=== PATIENT | female | born 1975 | race Caucasian/White ===

== ENCOUNTER → 2019-12-13 08:48 | Outpatient (CLI) | payer OTHER, SELFPAY ==
--- NOTE | ~2019-12-13 | US_ITS ---
EXAMINATION: US breast LT complete HISTORY: Six-month follow-up for probably benign left breast masses TECHNIQUE: Complete left breast ultrasound is performed. COMPARISON: 05/31/2019, 11/22/2018 FINDINGS: There is a stable 10 mm x 5 mm oval, circumscribed, parallel, hypoechoic mass with posterio r acoustic enhancement and no internal vascularity at the 11:30 location 1 cm from the nipple. There has been no suspicious interval change. A 5 mm x 3 mm mass with similar sonographic features is prese nt at the 12:30 location 3 cm from the nipple. There are multiple cysts scattered throughout the ava sts, the largest of which measures 1.6 cm at the 9:00 location 3 cm from the nipple. IMPRESSION: Probably benign left breast masses at the 11:30 and 12:30 locations. Follow-up left breast ultrasound six months is recommended. BI-RADS category 3, probably benign findings. Reviewed, dictated and finalized at location A.
--- NOTE | ~2019-12-13 | MM_ITS ---
EXAMINATION: MM screening [facility] BI w [facility] HISTORY: Screening mammogram TECHNIQUE: Craniocaudal and mediolateral oblique 3-D tomosynthesis images were obtained and synthetic 2-D images were generated. CAD analysis was submitted and interpreted. COMPARISON: 11/22/2018, 11/10/2018, 11/17/2016 BREAST PARENCHYMAL COMPOSITION: The breasts are extremely dense, which lowers the sensitivity of mamm ography. FINDINGS: There is a stable cyst in the middle third of the inner left breast. There is no evidence o f suspicious mass, calcification, or architectural distortion to suggest malignancy in either breast. There has been no suspicious interval change. IMPRESSION: 1. No mammographic evidence of malignancy. 2. Recommend routine screening mammography in one year. BI-RADS Category 2: Benign finding(s). Reviewed, dictated and finalized at location A.
== END ==
PROVIDERS: Visit Provider Obstetrics & Gynecology
DX: N63.20 Unspecified lump in the left breast, unspecified quadrant (principal)
CPT/HCPCS: 76641; 77063; 77067

== ENCOUNTER 2020-09-01 08:11 | Day surgery (SDC) | payer OTHER, SELFPAY ==
[2020-09-01] VITALS (10 sets, daily range): BP systolic 115–134; BP diastolic 68–77; PULSE 53–88; RESP 14–18; TEMP 36.6–37; O2SAT 100
--- NOTE | ~2020-09-01 | CT_ITS ---
EXAMINATION: CT abdomen pelvis w con DATE: 09/01/2020 10:41 INDICATION: Left lower quadrant abdominal pain TECHNIQUE: Computed tomography (CT) of the abdomen and pelvis was performed with 100 mL Omnipaque-350 intravenous contrast. Automated exposure control and iterative reconstruction technique were employe d. The dose-length product was 538.77 mGy-cm. COMPARISON: None FINDINGS: Lung bases are clear. Heart size is normal. No pericardial or pleural effusion. Liver, gallbladder, p ancreas, bilateral adrenal glands and kidneys are normal. Splenic calcification consistent with old g ranulomatous disease. No bowel obstruction. There is inflammatory stranding surrounding the appendix which is dilated to 11 mm consistent with acute appendicitis. Bilateral adnexal cysts measuring 4.2 c m in the right and 1.8 cm on the left. Bladder and uterus are normal. Trace amount of likely reactive or physiologic free fluid in the pelvis. No abscess or free intraperitoneal gas. No pathologically e nlarged abdominal or pelvic lymphadenopathy. Mild right hip osteoarthritis with subarticular cystic c hange at the anterior right acetabulum. IMPRESSION: 1. Acute appendicitis. Dr. Wild discussed these findings with Dr. Kennedy Perry at 10:48 AM. Reviewed, dictated and finalized at location B. IMPRESSION: 1. Acute appendicitis. Dr. Wild discussed these findings with Dr. Kennedy borges at 10:48 AM.
--- NOTE | 2020-09-01 08:59 | PC.NURSE ---
pt. given urine cup in Triage and aware need UA specimen
[2020-09-01] MEDS: ONDANSETRON INJ 4 MG/2 ML VIAL IV PUSH (09:16)
[2020-09-01] MEDS: SODIUM CHLORIDE 0.9% IV 1,000 ML 999 ML IV CONT (09:16)
[2020-09-01 09:25] LABS: Basophils Percent Auto 0.2 % (0.2-1.2); Eosinophils Absolute Auto 0.1 K/mm3 (0-0.3); Eosinophils Percent Auto 0.6 % (0-4.4); Hematocrit 40.5 % (37.0-47.0); Hemoglobin 13.4 g/dL (12.0-15.0); Immature Granulocyte Absolute 0.04 K/mm3 (0.00-0.031); Immature Granulocyte Percent A 0.4 % (0-0.5); Lymphocytes Absolute Auto 1.54 K/mm3 (0.9-3.2); Lymphocytes Percent Auto 13.8 % (18.3-44.2); Mean Corpuscular HGB Conc 33.1 g/dl (32-36); Mean Corpuscular Hemoglobin 30.4 pg (26-34); Mean Corpuscular Volume 91.8 fl (80-100); Mean Platelet Volume 9.4 fl (7.4-10.4); Monocytes Absolute Auto 0.4 K/mm3 (0.1-0.6); Monocytes Percent Auto 3.7 % (2.6-8.5); Neutrophils Absolute Auto 9.1 K/mm3 (1.3-6.7); Neutrophils Percent Auto 81.3 % (45.5-73.1); Platelet Count Result 228 k/mm3 (150-375); Red Blood Count 4.41 M/mm3 (4.2-5.4); Red Cell Distribution Width 12.3 % (11.5-14.5); White Blood Count 11.1 K/mm3 (4.5-10.0)
[2020-09-01 09:37] LABS: Alanine Aminotransferase 13 U/L (4-35); Albumin Level 4.2 g/dL (3.5-5.1); Alkaline Phosphatase 44 U/L (38-126); Anion Gap 4 mmol/L (8-16); Aspartate Amino Transferase 23 U/L (14-36); Bilirubin,Total 0.6 mg/dL (0.2-1.3); Blood Urea Nitrogen 11 mg/dL (7-17); Calcium 8.4 mg/dL (8.4-10.2); Carbon Dioxide 28 mmol/L (22-30); Chloride 106 mmol/L (98-107); Estimated CRCL calculation 99 ml/min; Estimated Glomerular Filt Rate > 60; Glucose 112 mg/dL (65-105); Lipase 139 U/L (23-300); Potassium 3.8 mmol/L (3.4-5.0); Sodium 138 mmol/L (137-145)
[2020-09-01 09:41] LABS: Add Urine Microscopic? YES; Appearance Urine Cloudy (Clear); Bacteria Urine Trace /hpf; Bilirubin Urine Negative (Negative); Blood Urine Negative (Negative); Color Urine Yellow (Yellow); Glucose Urine UA Negative (Negative); Ketones Urine 1+ mg/dL (Negative); Leukocyte Esterase Ur Negative LEU/UL (Negative); Mucus Urine Rare /lpf; Nitrate Urine Negative (Negative); Protein Urine Negative (Negative); RBC Urine 0-2 /hpf (0-2); Specific Grav Ur 1.018 (1.001-1.035); Squamous Epithelial Cell Urine Few /hpf (Few); Urobilinogen Urine Negative mg/dL (<2.0)
--- NOTE | 2020-09-01 10:58 | ED.ABDPAIN ---
HPI - Abdominal Pain General Chief Complaint: Abdominal Pain Stated Complaint: abd pain Time Seen by Provider: 09/01/20 09:02 Source: patient Mode of arrival: ambulatory Limitations: no limitations History of Present Illness HPI narrative: Patient presents with complaint of diffuse lower abdominal pain that has been occurring over the past 2 days but has increased this morning at 3 AM. Patient states that she has some nausea and one episode of vomiting. She states she had one episode of loose stool but denies any blood or mucus. Patient denies nausea at this time. Patient denies fever, chills, chest pain, shortness of breath. Patient states that she ate a bite of banana and drank some orange juice this morning at approximately 5:30 AM but was scared that if she continued to eat that she would vomit so she stopped. Patient states her only prior abdominal surgeries or fibroid removal. Patient denies any chronic medical conditions or any daily medications. Related Data Home Medications Medication Instructions Recorded Confirmed No Home Medications 05/10/19 09/01/20 Allergies Allergy/AdvReac Type Severity Reaction Status Date / Time No Known Allergies Allergy Mild Verified 09/01/20 09:03 Review of Systems Review of Systems: Narrative: CONSTITUTIONAL: Denies fever, chills, or sweats. EYES: Denies visual changes, redness, or discharge. ENT: Denies rhinorrhea, congestion, sore throat, or otalgia. CARDIOVASCULAR: Denies chest pain, palpitations, or edema. RESPIRATORY: Denies cough or dyspnea. GASTROINTESTINAL: Reports abdominal pain, resolved nausea, vomitingx1, diarrheax1. GENITOURINARY: Denies dysuria or hematuria. SKIN: Denies rash or itching. MUSCULOSKELETAL: Denies back pain, joint pain, or myalgia. NEUROLOGIC: Denies headache, numbness, dizziness, or weakness. PSYCHIATRIC: Denies anxiety or depression. 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 Gender identity (if verbalized by the patient): Female Sexual Orientation (if Verbalized by the Patient): Straight or Heterosexual Exam Narrative: Exam Narrative: GENERAL: Well-appearing, well-nourished, and in no acute distress. HEAD: Normocephalic, atraumatic. EYES: PERRLA and EOMI. NECK: Supple. No adenopathy or masses. CHEST: Clear to auscultation. No respiratory distress. No wheezes rales or rhonchi HEART: Regular rate and rhythm. No murmur heard. Normal peripheral pulses. ABDOMEN: Soft, diffuse lower abdominal tenderness to palpation. Worse over left lower quadrant.McBurney's point mildly tender. No guarding or rebound tenderness. nondistended, normal active bowel sounds. EXTREMITIES: Normal range of motion. No edema. SKIN: Warm, dry, no rash. NEURO: No focal deficits. Alert and oriented x3. PSYCH: Normal mood and affect. Course Vital Signs Vital signs: Vital Signs Temperature 97.8 F 09/01/20 08:38 Pulse Rate 53 L 09/01/20 08:38 Respiratory Rate 14 09/01/20 08:38 Blood Pressure 131/68 09/01/20 08:38 Pulse Oximetry 100 09/01/20 08:38 Temperature 97.8 F 09/01/20 08:38 Pulse Rate 60 09/01/20 09:01 Respiratory Rate 18 09/01/20 09:01 Blood Pressure 131/77 09/01/20 09:01 Pulse Oximetry 100 09/01/20 09:01 MDM - Abdominal Pain MDM Narrative Medical decision
--- NOTE | 2020-09-01 11:41 | PM.IMHP ---
H&P: HPI History of Present Illness Date/Time: 09/01/20 11:41 Chief Complaint: Abdominal pain Narrative: This is a 45-year-old female who presented to the ER with complaint of abdominal pain. She reports having an onset of dull generalized abdominal pain 2 days ago that spontaneously resolved. Then, overnight around 3:30 am she had a sudden onset of more severe abdominal pain that was diffusely spread across her entire abdomen. More severe than what she was experiencing 2 days ago. Denies fever or chills. She developed nausea as well this morning, but no vomiting. Due to the worsening pain, she presented to the ER for further evaluation. CT scan of the abdomen and pelvis showed acute uncomplicated appendicitis. Labs revealed a white blood cell count of 11,100. Our service has been contacted by the ER provider for surgical evaluation of acute appendicitis. She is now being seen in the ER. Reports her abdominal pain has improved with analgesics. Pain is aggravated by movement and riding in the care on the way to the ER. No other complaints at this time. Review of Systems Review of Systems: All systems reviewed & are unremarkable except as noted in HPI and below Constitutional: Constitutional: Reports as per HPI, Denies chills, Denies fatigue and Denies fever(s) Eyes: Eyes: Reports no additional eye complaints and Denies change in vision ENT: Reports system reviewed and no additional complaints, except as documented, Reports Normal hearing present and Denies dizziness Cardiovascular: Cardiovascular: Reports no additional cardiovascular complaints, Denies chest pain, Denies leg edema and Denies dyspnea Respiratory: Respiratory: Reports no additional respiratory complaints, Denies cough and Denies dyspnea Gastrointestinal: Gastrointestinal: Reports as per HPI, Reports no additional gastrointestinal complaints, Reports abdominal pain, Denies melena, Denies bloating, Denies hematochezia, Denies constipation, Denies diarrhea, Reports loose stools (x1 this morning), Reports nausea and Denies vomiting Genitourinary: Genitourinary: Denies hematuria and Denies dysuria Musculoskeletal: Musculoskeletal: Denies abnormal gait, Denies deformity, Denies joint swelling, Denies numbness and Denies tingling Integumentary/Breasts: Skin/Breast: Denies wounds and Denies jaundice Neurologic: Reports system reviewed and no additional complaints, except as documented, Reports Normal hearing present, Denies abnormal gait, Denies dizziness, Denies focal weakness, Denies numbness and Denies tingling Psychiatric: Psychiatric: Denies anxiety and Denies depression Endocrine: Endocrine: Denies fatigue [facility] Past Medical History Medical History No pertinent past medical history Surgical History Surgical History History of laparoscopy Laparoscopic myomectomy Family History Family History Other No pertinent family history Social History Social History Smoking status: Never smoker Substance use: never Living arrangements: with family Occupation/Education: occupation 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 Gender identity (if verbalized by the patient): Female Sexual Orientation (if Verbalized by the Patient): Straight or Heterosexual Meds Home Medications and Allergies Home Medications Medication Instructions Recorded Confirmed Type No Home Medications 05/10/19 09/01/20 History Allergies Allergy/AdvReac Type Severity Reaction Status Date / Time No Known Allergies Allergy Mild Verified 09/01/20 09:03 Vital Signs Vital Signs - 24 hr 09/01/20 08:38 09/01/20 09:01 Temperature 97.8 F Pulse Rate 53 L 60 Respiratory Rate 14 18 Blood Pr
--- NOTE | 2020-09-01 13:56 | WPDANESEPPF ---
Anes - Initial Pre Proc Eval Procedure: Operation Date: 09/01/20 15:00 Proposed Procedures p Laparoscopic Appendectomy, Possible Open - Keith Lobato DO Date/Time: 09/01/20 13:56 Surgeon: Keith Lobato DO Pre Op Diagnosis: abd pain Patient Data Age: 45 Gender: F Height: 5 ft 11 in Weight: 72.5 kg Last Vital Signs Temp 36.8 C 09/01/20 13:47 Pulse 66 09/01/20 13:47 Resp 16 09/01/20 13:47 BP 122/69 09/01/20 13:47 Pulse Ox 100 09/01/20 13:47 Allergies Allergy/AdvReac Type Severity Reaction Status Date / Time No Known Allergies Allergy Mild Verified 09/01/20 09:03 Home Medications Medication Instructions Recorded Confirmed Type No Home Medications 05/10/19 09/01/20 History Laboratory Tests 09/01/20 09/01/20 09/01/20 09:15 09:15 09:15 WBC 11.1 K/mm3 H K/mm3 (4.5-10.0) RBC 4.41 M/mm3 M/mm3 (4.2-5.4) Hgb 13.4 g/dL g/dL (12.0-15.0) Hct 40.5 % % (37.0-47.0) MCV 91.8 fl fl (80-100) MCH 30.4 pg pg (26-34) MCHC 33.1 g/dl g/dl (32-36) RDW 12.3 % % (11.5-14.5) Plt Count 228 k/mm3 k/mm3 (150-375) MPV 9.4 fl fl (7.4-10.4) Immature Gran % (Auto) 0.4 % % (0-0.5) Neut % (Auto) 81.3 % H % (45.5-73.1) Lymph % (Auto) 13.8 % L % (18.3-44.2) Cooper % (Auto) 3.7 % % (2.6-8.5) Eos % (Auto) 0.6 % % (0-4.4) Baso % (Auto) 0.2 % % (0.2-1.2) Lymph # (Auto) 1.54 K/mm3 K/mm3 (0.9-3.2) Cooper # (Auto) 0.4 K/mm3 K/mm3 (0.1-0.6) Eos # (Auto) 0.1 K/mm3 K/mm3 (0-0.3) Baso # (Auto) 0.0 K/mm3 K/mm3 (0.0-0.1) Abs Immat Gran (auto) 0.04 K/mm3 H K/mm3 (0.00-0.031) Absolute Neuts (auto) 9.1 K/mm3 H K/mm3 (1.3-6.7) Absolute Nucleated RBC 0.0 K/mm3 K/mm3 (0.0-0.012) Nucleated RBC % 0.0 % % (0.0-0.2) Sodium 138 mmol/L mmol/L (137-145) Potassium 3.8 mmol/L mmol/L (3.4-5.0) Chloride 106 mmol/L mmol/L (98-107) Carbon Dioxide 28 mmol/L mmol/L (22-30) Anion Gap 4 mmol/L L mmol/L (8-16) BUN 11 mg/dL mg/dL (7-17) Creatinine 0.70 mg/dL mg/dL (0.7-1.0) Estim Creat Clear Calc 99 ml/min ml/min Estimated GFR > 60 (59 - ) Glucose 112 mg/dL H mg/dL (65-105) Calcium 8.4 mg/dL mg/dL (8.4-10.2) Total Bilirubin 0.6 mg/dL mg/dL (0.2-1.3) AST 23 U/L U/L (14-36) ALT 13 U/L U/L (4-35) Alkaline Phosphatase 44 U/L U/L (38-126) Total Protein 7.0 g/dL g/dL (6.3-8.2) Albumin 4.2 g/dL g/dL (3.5-5.1) Lipase 139 U/L U/L (23-300) Urine Color Yellow (Yellow) Urine Appearance Cloudy H (Clear) Urine pH 7.0 (5.0-9.0) Ur Specific [place] 1.018 (1.001-1.035) Urine Protein Negative mg/dL mg/dL (Negative) Urine Glucose (UA) Negative mg/dL mg/dL (Negative) Urine Ketones 1+ mg/dL H mg/dL (Negative) Ur Blood (Man) Negative (Negative) Urine Nitrate Negative (Negative) Urine Bilirubin Negative (Negative) Urine Urobilinogen Negative mg/dL mg/dL (<2.0) Leukocyte Esterase Rfl Negative PHILLIP/UL HPILLIP/UL (Negative) Urine RBC 0-2 /hpf /hpf (0-2) Urine WBC 4-6 /hpf H /hpf Ur Squamous Epith Cells Few /hpf /hpf (Few) Urine Bacteria Trace /hpf /hpf Urine Mucus Rare /lpf /lpf Patient hx anesthesia problems: none Family hx anesthesia problems: none PMFSH Past Medical History Medical History No pertinent past medical history Surgical History Surgical History His
--- NOTE | 2020-09-01 13:58 | WPDHPUPDATE1 ---
History and Physical Update Update Date/Time: 09/01/20 13:58 History and Physical has been reviewed, including an updated exam of the patient. There are NO changes in the patient's condition. Risks, benefits, and alternatives have been discussed and questions answered. Patient agrees to proceed with procedure.
[2020-09-01] MEDS: BUPIVACAINE/EPINEPHRINE 0.5% 30 ML VIAL INFILTRATE (15:11)
[2020-09-01] MEDS: KETOROLAC 30 MG/ML VIAL (*BKC) IV PUSH (15:30)
[2020-09-01] MEDS: LACTATED RINGERS 1,000 ML 30 ML IV CONT ×2 (15:46→15:51)
--- NOTE | 2020-09-01 15:50 | PM.PROC ---
Procedure Note - Detailed Date of procedure: 09/01/20 Pre-op diagnosis: Acute appendicitis Post-op diagnosis: same Procedure performed: Laparoscopic Appendectomy Description of procedure: Procedure as well as risks, benefits, and alternatives were explained to the patient. The patient agreed to proceed. Written consent was obtained and placed in chart prior to procedure. The patient was brought back to surgical suite. She was placed supine on operating table. Time-out was done to confirm the patient and procedure. The patient was then intubated by the Anesthesia Department. Her abdomen was prepped and draped in sterile fashion using chlorhexidine prep. A 12 mm incision was made at the inferior portion of the umbilicus. Blunt dissection was carried out down to the linea alba. The linea alba was then incised using a 15 blade scalpel. Then bluntly entered into the peritoneal cavity. A 12 mm trocar was then inserted, and carbon dioxide insufflation was used to create a pneumoperitoneum. The camera was inserted and the abdomen was inspected. No immediate abnormalities were identified. The patient was then placed in slight Trendelenburg position and rotated to the left. A 5 mm incision was made in the suprapubic region in midline and a 5 mm trocar was inserted under direct visualization. A 5 mm incision was made in the left lower quadrant and a 5 mm trocar was inserted under direct visualization. The right lower quadrant was carefully inspected. The cecum was identified and then this was traced back to the appendix. The appendix was identified and grasped at the mesoappendix and lifted anteriorly. Careful blunt dissection was carried out at the base of the appendix through the mesoappendix using a [place] grasper. An Endo-MYESHA 45 mm blue load stapler was then advanced across the base of the appendix and clamped and fired. A white reload was then clamped across the mesoappendix and fired. This freed up our appendix completely. It was then placed in an EndoCatch bag and removed through the left lower quadrant port. The staple lines were then inspected. Hemostasis appeared adequate and the staple lines appeared secure. The area was then irrigated with sterile saline. The pelvis was then carefully inspected and irrigated with sterile saline as well and the remainder of the abdomen was carefully inspected. The patient was then flattened out in bed. One final inspection was made around the abdominal cavity and no other abnormalities were seen. The ports were then removed under direct visualization. The camera was removed and the pneumoperitoneum was released. The fascia of the umbilical incision was reapproximated using an 0 Vicryl [id number] suture. 0.5% bupivacaine with epinephrine was infiltrated locally around each of the incisions. The skin of the incisions was then approximated using 4-0 Monocryl subcuticular suture and Exofin glue was applied on top. The patient was then awakened from anesthesia, extubated, and transferred to Recovery. Anesthesia: GETA and local (0.5% bupivicaine with epi) Surgeon: Keith Lobato DO Estimated blood loss (mL): 10 Pathology: yes (Appendix) Complications: No immediate complications Condition: stable Disposition: same day Findings: This is a 45-year-old woman who presented with right lower quadrant pain for the past couple days. She states that her pain was very mild and vague at 1st but around 3:00 a.m. this morning it woke her from sleep and was more localized to the right lower quadrant. She has never experienced this in the past. She denied any fevers or chills. She was noted to have focal right lower quadrant tenderness and CT showed evidence of acute appendicitis without evidence of perforation or abscess. Discussions were made with the patient about her treatment options and decision was made to proceed with laparoscopic appendectomy, possible open. Laparoscopic appendectomy was performed. Betzaida
== END 2020-09-01 17:48 | disposition home or self-care (01) ==
LOC: ANHED 12:36 → ANHSURGERY 13:21
PROVIDERS: Emergency Provider Emergency Medicine; PCP Family Medicine; Visit Provider Surgery
PROC: 0DTJ4ZZ Resection of Appendix, Percutaneous Endoscopic Approach (ICD-10-PCS; CPT 44970; principal; 2020-09-01 15:00)
DX: K35.30 Acute appendicitis with localized peritonitis, without perforation or gangrene (principal)
CPT/HCPCS: 44970; 36415; 74177; 80053; 81001; 81025; 83690; 85025; 88304; 96361; 96365; 96367; 96375; 99285; J0131; J0330; J1100; J1885; J2250; J2405; J2543; J2704; J2710; J3010; J7030; J7120; Q9967

== ENCOUNTER → 2020-09-23 08:15 | Outpatient (CLI) | payer OTHER, SELFPAY ==
--- NOTE | ~2020-09-23 | US_ITS ---
US breast LT limited DATE: 09/23/2020 08:46 INDICATION: Short-term follow-up of probably benign left breast masses at 11:30 and 12:30 reported on 12/13/2019 left breast ultrasound examination TECHNIQUE: Real-time and color flow imaging targeted at 11-12:00 1 cm from the nipple and 12-1 o'cloc k 3 cm from the nipple COMPARISON: 12/13/2019 left complete breast ultrasound FINDINGS: 11-12:00 1 cm from nipple: Interval decreased size of parallel circumscribed hypoechoic lesion, curre ntly measuring 5.8 x 3.2 x 4.6 mm compared to 6.7 x 4.5 x 10.6 mm on 12/13/2019, consistent with benig n process 12-1:00 3 cm from nipple: 5 x 10 mm mildly septated cyst with through transmission posterior enhancem ent, consistent with benign process IMPRESSION: BI-RADS Category 2: Benign Recommendation: Routine mammographic screening Reviewed, dictated and finalized at Location A. Reviewed, dictated and finalized at location A.
== END ==
PROVIDERS: Visit Provider Obstetrics & Gynecology
DX: R92.8 Other abnormal and inconclusive findings on diagnostic imaging of breast (principal)
CPT/HCPCS: 76642

== ENCOUNTER → 2020-12-30 07:46 | Outpatient (CLI) | payer OTHER, SELFPAY ==
--- NOTE | ~2020-12-30 | MMUS_ITS ---
EXAMINATION: MM diagnostic ene BI w [facility], US breast RT complete HISTORY: History of fibrocystic disease. TECHNIQUE: Additional 3-D tomosynthesis images of the breasts were performed and synthetic 2-D images were generated. CAD analysis was submitted and interpreted. High resolution complete right breast ul trasound was performed. COMPARISON: Comparison to multiple prior studies sequentially, with oldest reviewed study dated 11/17. BREAST PARENCHYMAL COMPOSITION: The breasts are extremely dense, which lowers the sensitivity of mamm ography. FINDINGS: MAMMOGRAPHIC FINDINGS: The left breast is stable without evidence for malignancy. There are scattered right breast masses ob scured by overlying dense fibroglandular tissue. ULTRASOUND: Complete right breast ultrasound: There are multiple simple and complicated cysts of the right breast corresponding to the mammographic findings. The largest cyst measures 11 mm at 8:00, 4 cm from the n ipple and 1 cm at 1:00, 1 cm from the nipple. No sonographic evidence for malignancy. IMPRESSION: 1. No evidence for malignancy in either breast. Benign findings. 2. Routine yearly screening mammogram and regular clinical breast examination are recommended. BI-RADS Category 2: Benign finding(s). Reviewed, dictated and finalized at location A. IMPRESSION: 1. No evidence for malignancy in either breast. Benign findings. 2. Routine yearly screening mammogram and regular clinical breast examination a re recommended. BI-RADS Category 2: Benign finding(s).
== END ==
PROVIDERS: Visit Provider Obstetrics & Gynecology
DX: R92.8 Other abnormal and inconclusive findings on diagnostic imaging of breast (principal)
CPT/HCPCS: 76641; 77062; 77066; G0279

== ENCOUNTER → 2022-03-19 13:58 | Outpatient (CLI) | payer OTHER, SELFPAY ==
--- NOTE | ~2022-03-19 | MM_ITS ---
EXAMINATION: MM screening ene BI w [facility] HISTORY: Screening TECHNIQUE: Craniocaudal and mediolateral oblique 3-D tomosynthesis images were obtained and synthetic 2-D images were generated. CAD analysis was submitted and interpreted. COMPARISON: Comparison to multiple prior studies sequentially, with oldest reviewed study dated 11/17. BREAST PARENCHYMAL COMPOSITION: The breasts are extremely dense, which lowers the sensitivity of mamm ography FINDINGS: There is no evidence of suspicious mass, calcification, or architectural distortion to sugg est malignancy in either breast. There has been no suspicious interval change. IMPRESSION: 1. No mammographic evidence of malignancy. 2. Recommend routine screening mammography in one year. BI-RADS Category 1: Negative Reviewed, dictated and finalized at location A.
== END ==
PROVIDERS: PCP Obstetrics & Gynecology; Visit Provider Obstetrics & Gynecology
DX: Z12.31 Encounter for screening mammogram for malignant neoplasm of breast (principal)
CPT/HCPCS: 77063; 77067

== ENCOUNTER 2023-03-11 08:02 | Outpatient (CLI) | payer OTHER, SELFPAY ==
[2023-03-11 08:59] LABS: Basophils Absolute Auto 0.1 K/mm3 (0.0-0.1); Basophils Percent Auto 0.9 % (0.2-1.2); Eosinophils Absolute Auto 0.1 K/mm3 (0-0.3); Eosinophils Percent Auto 2.5 % (0-4.4); Hemoglobin 13.6 g/dL (12.0-15.0); Immature Granulocyte Absolute 0.01 K/mm3 (0.00-0.031); Immature Granulocyte Percent A 0.2 % (0-0.5); Lymphocytes Absolute Auto 2.11 K/mm3 (0.9-3.2); Lymphocytes Percent Auto 37.7 % (18.3-44.2); Mean Corpuscular HGB Conc 32.4 g/dl (32-36); Mean Corpuscular Hemoglobin 30.4 pg (26-34); Mean Corpuscular Volume 93.8 fl (80-100); Mean Platelet Volume 9.7 fl (7.4-10.4); Monocytes Absolute Auto 0.3 K/mm3 (0.1-0.6); Monocytes Percent Auto 5.4 % (2.6-8.5); Neutrophils Percent Auto 53.3 % (45.5-73.1); Platelet Count Result 280 k/mm3 (150-375); Red Blood Count 4.48 M/mm3 (4.2-5.4); Red Cell Distribution Width 12.3 % (11.5-14.5); White Blood Count 5.6 K/mm3 (4.5-10.0)
[2023-03-11 09:04] LABS: Alanine Aminotransferase 14 U/L (6-35); Albumin Level 4.4 g/dL (3.5-5.1); Alkaline Phosphatase 40 U/L (38-126); Anion Gap 8 mmol/L (8-16); Aspartate Amino Transferase 20 U/L (14-36); Bilirubin,Total 1.1 mg/dL (0.2-1.3); Blood Urea Nitrogen 13 mg/dL (7-17); Calcium 8.8 mg/dL (8.4-10.2); Carbon Dioxide 23 mmol/L (22-30); Chloride 104 mmol/L (98-107); Cholesterol 166 mg/dL (0-200); Estimated Glomerular Filt Rate > 60; Glucose 99 mg/dL (65-110); HDL Direct 55 mg/dL; Potassium 4.1 mmol/L (3.4-5.0); Sodium 135 mmol/L (137-145); Triglycerides 98 mg/dL (<150)
[2023-03-11 09:16] LABS: LDL Cholesterol Direct 88 mg/dL
== END 2023-03-11 08:03 | disposition home or self-care (01) ==
LOC: ANHLAB 08:04
PROVIDERS: PCP Obstetrics & Gynecology; Visit Provider Obstetrics & Gynecology
DX: R53.83 Other fatigue (principal)
CPT/HCPCS: 36415; 80053; 80061; 84443; 85025

== ENCOUNTER → 2023-06-28 15:10 | Outpatient (CLI) | payer OTHER, SELFPAY ==
--- NOTE | ~2023-06-28 | MM_ITS ---
EXAMINATION: MM screening ene BI w [facility] HISTORY: Screening TECHNIQUE: Craniocaudal and mediolateral oblique 3-D tomosynthesis images were obtained and synthetic 2-D images were generated. CAD analysis was submitted and interpreted. COMPARISON: Comparison to multiple prior studies sequentially, with oldest reviewed study dated . . BREAST PARENCHYMAL COMPOSITION: The breasts are extremely dense, which lowers the sensitivity of mamm ography. FINDINGS: There are developing asymmetries in the right breast. The left breast is stable without mattie dence for malignancy. IMPRESSION: 1. Developing right breast asymmetries. 2. Additional mammographic views and possible breast ultrasound are recommended. BI-RADS Category 0: Incomplete: Needs additional imaging evaluation. Reviewed, dictated and finalized at location A. [employer] IMPRESSION: 1. Developing right breast asymmetries. 2. Additional mammographic views and possible breast ultrasound are recommended . BI-RADS Category 0: Incomplete: Needs additional imaging evaluation.
== END ==
PROVIDERS: PCP Obstetrics & Gynecology; Visit Provider Obstetrics & Gynecology
DX: Z12.31 Encounter for screening mammogram for malignant neoplasm of breast (principal); R92.8 Other abnormal and inconclusive findings on diagnostic imaging of breast
CPT/HCPCS: 77063; 77067

== ENCOUNTER → 2023-07-25 08:26 | Outpatient (CLI) | payer OTHER, SELFPAY ==
--- NOTE | ~2023-07-25 | MMUS_ITS ---
EXAMINATION: MM diagnostic ene RT w prince, US breast RT complete HISTORY: Follow-up right breast asymmetries TECHNIQUE: Additional 3-D tomosynthesis images of the right breast were performed and synthetic 2-D i mages were generated. CAD analysis was submitted and interpreted. High resolution complete right ava st ultrasound was performed. COMPARISON: 06/28/2023 BREAST PARENCHYMAL COMPOSITION: Dense: The breasts are extremely dense, which lowers the sensitivity of mammography. FINDINGS: MAMMOGRAPHIC FINDINGS: There are multiple ill-defined masses in the right breast which are partially obscured by fibroglandu lar tissue. There are no suspicious calcifications or architectural distortion. ULTRASOUND: Complete US of all 4 quadrants of the right breast and retroareolar region was reviewed. There are mu ltiple cysts throughout the right breast corresponding to the mammographic findings. The largest cyst is at 10:00, 4 cm from the nipple measuring up to 2.3 cm. No suspicious sonographic abnormalities to suggest malignancy. IMPRESSION: 1. No evidence for malignancy in the right breast. Benign findings. 2. Routine yearly screening mammogram and regular clinical breast examination are recommended. BI-RADS Category 2: Benign finding(s). Reviewed, dictated and finalized at location A. AURANT SERVER IMPRESSION: 1. No evidence for malignancy in the right breast. Benign findings. 2. Routine yearly screening mammogram and regular clinical breast examination a re recommended. BI-RADS Category 2: Benign finding(s).
== END ==
PROVIDERS: PCP Obstetrics & Gynecology; Visit Provider Obstetrics & Gynecology
DX: N64.89 Other specified disorders of breast (principal)
CPT/HCPCS: 76641; 77061; 77065; G0279

== ENCOUNTER 2024-05-14 00:22 | Day surgery (SDC) | payer OTHER, SELFPAY ==
[2024-05-04 12:48] VITALS: BMI 25.1
--- NOTE | 2024-05-14 06:39 | P.PNAN_ITS ---
Anes - Initial Pre Proc Eval Procedure: Operation Date: 05/14/24 09:30 Proposed Procedures p Screening Colonoscopy - Keith Lobato DO Date/Time: 05/14/24 06:39 Surgeon: Keith Lobato DO Pre Op Diagnosis: Screening for malignant neoplasm of colon Patient Data Age: 49 Gender: F Height: 1.8 m Weight: 81.7 kg Allergies Allergy/AdvReac Type Severity Reaction Status Date / Time No Known Allergies Allergy Mild Verified 05/04/24 12:48 Home Medications ?Medication ?Instructions ?Recorded ?Confirmed ?Type No Home Medications 09/16/20 05/14/24 History Patient hx anesthesia problems: none Family hx anesthesia problems: none Results Review: All pre-operative results and documents have been reviewed as part of the pre- operative evaluation. [facility] Past Medical History Medical History (Updated 05/14/24 @ 06:40 by Edson Yung DO) Fibroid Screening mammogram, encounter for Anemia No pertinent past medical history Surgical History Surgical History History of gynecological procedure (07/16/05) laparoscopy, lysis adhesions, left ovarian cystectomy, resection of endometriosis S/P skin cancer resection (06/30/07) skin cancer removed-shoulder/leg Dermatology Dr. Ocampo History of laparoscopic appendectomy 09/01/20 History of laparoscopy Laparoscopic myomectomy Family History Family History Grandparent Cerebrovascular accident paternal grandfather Breast cancer Maternal Grandmother Other No pertinent family history Social History Social History (Updated 05/14/24 @ 08:30 by Edson Yung DO) Smoking status: Never smoker Second hand tobacco smoke exposure: No Alcohol intake: current Drinks per week: 7 Alcohol use details: 1 drink/daily Substance use: never Substance use type: does not use Do You Feel Safe in your Home?: Yes Lack of Transportation: No Lack of Food: Never True Current Housing: I Have Housing Concerned About Future Housing: No Difficulty Paying Gas/Electric Bills: No Difficulty Paying for Meds: No Currently Unemployed: No Education: Master's Degree or Higher Difficulty w/ Childcare or Family Care: No Living arrangements: with family Additional living arrangements comments: Occupation/Education: occupation 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 Gender identity (if verbalized by the patient): Female Sexual Orientation (if Verbalized by the Patient): Straight or Heterosexual Anes - Eval Final PreProcedure Day of Procedure 05/14/24 06:39 Patient weight: overweight Heart: regular rate and rhythm Lungs: clear to auscultation Airway: Mallampati scale class II Neurological: alert and oriented Last oral intake: >/= 8 hours ASA classification: III Emergent: no Anesthetic plan: proceed Anesthesia type and monitoring: general GIVS and standard monitoring Results Review: All pre-operative results and documents have been reviewed as part of the pre- operative evaluation. Informed Consent: The patient's anesthetic plan and its attendant risks and benefits were discussed with the patient/family/POA. Questions were solicited and answers provided to the satisfaction of the patient/family/POA.
[2024-05-14 08:11] VITALS: BP 147/77; PULSE 67; RESP 20; TEMP 35.8; O2SAT 99; BMI 25.4
[2024-05-14] MEDS: LACTATED RINGERS 1,000 ML 150 ML IV CONT (08:18)
[2024-05-14 08:40] LABS: BEDSIDEPREGUCG Negative (Negative)
--- NOTE | 2024-05-14 09:18 | PM.IMHP ---
H&P: HPI History of Present Illness Date/Time: 05/14/24 09:18 Chief Complaint: Screening for colorectal cancer Narrative: This is a 49-year-old woman who presents for colonoscopy. She states she had colonoscopy done many years ago but does not recall why. She denies any hematochezia or melena. She denies any family history of colon cancer. Review of Systems Review of Systems: All systems reviewed & are unremarkable except as noted in HPI and below Constitutional: Constitutional: Denies chills, Denies fever(s), Denies headache(s) and Denies weight loss Eyes: Eyes: Denies change in vision ENT: Denies dizziness, Denies headache(s), Denies neck mass and Denies throat swelling Cardiovascular: Cardiovascular: Denies chest pain, Denies lightheadedness and Denies dyspnea Respiratory: Respiratory: Denies cough, Denies dyspnea and Denies wheezing Gastrointestinal: Gastrointestinal: Denies abdominal pain, Denies change in bowel habits, Denies nausea and Denies vomiting Genitourinary: Genitourinary: Denies hematuria and Denies dysuria Musculoskeletal: Musculoskeletal: Reports as per HPI Integumentary/Breasts: Skin/Breast: Reports as per HPI Neurologic: Denies dizziness and Denies headache(s) Allergic/Immunologic: Allergic/Immunologic: Denies throat swelling and Denies wheezing PMFSH Past Medical History Medical History (Updated 05/14/24 @ 06:40 by Edson Yung DO) Fibroid Screening mammogram, encounter for Anemia No pertinent past medical history Surgical History Surgical History History of gynecological procedure (07/16/05) laparoscopy, lysis adhesions, left ovarian cystectomy, resection of endometriosis S/P skin cancer resection (06/30/07) skin cancer removed-shoulder/leg Dermatology Dr. Ocampo History of laparoscopic appendectomy 09/01/20 History of laparoscopy Laparoscopic myomectomy Family History Family History Grandparent Cerebrovascular accident paternal grandfather Breast cancer Maternal Grandmother Other No pertinent family history Social History Social History (Updated 05/14/24 @ 08:30 by Edson Yung DO) Smoking status: Never smoker Second hand tobacco smoke exposure: No Alcohol intake: current Drinks per week: 7 Alcohol use details: 1 drink/daily Substance use: never Substance use type: does not use Do You Feel Safe in your Home?: Yes Lack of Transportation: No Lack of Food: Never True Current Housing: I Have Housing Concerned About Future Housing: No Difficulty Paying Gas/Electric Bills: No Difficulty Paying for Meds: No Currently Unemployed: No Education: Master's Degree or Higher Difficulty w/ Childcare or Family Care: No Living arrangements: with family Additional living arrangements comments: Occupation/Education: occupation 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 Gender identity (if verbalized by the patient): Female Sexual Orientation (if Verbalized by the Patient): Straight or Heterosexual Meds Home Medications and Allergies Home Medications ?Medication ?Instructions ?Recorded ?Confirmed ?Type No Home Medications 09/16/20 05/14/24 History Allergies Allergy/AdvReac Type Severity Reaction Status Date / Time No Known Allergies Allergy Mild Verified 05/04/24 12:48 Vital Signs Vital Signs - 24 hr 05/14/24 08:11 Temperature 96.4 F L Pulse Rate 67 Respiratory Rate 20 Blood Pressure 147/77 H Pulse Oximetry 99 Oxygen Delivery Room Air Exam Const: General: no acute distress and alert Orientation/consciousness: patient oriented x3 HENMT: Head: normocephalic and atraumatic Ears: hearing grossly normal bilaterally Face/Nose/Sinus: Normal nares present Mouth: Yes Normal oral and palatal mucosa present Eyes: Periorbital: periorbital findings normal Sclera: sclerae normal EOM: EOMs intact bilaterally Neck: Neck: normal visual inspection, no lymphadenopathy and trachea midline Chest: Chest palpation & inspection: normal inspection of the chest Resp: Effort & Inspection: normal respiratory effort Auscultation: clear to auscultation bilaterally Cardio: Jugular venous distension: no JVD Rate: regular rate Rhythm: regular rhythm Heart sounds: S1 normal heart sound present and S2 normal heart sound present Peripheral pulses: Peripheral pulses 2+ throughout GI: Inspection: normal to inspection GI Palp: Yes Soft to palpation, No Tenderness to palpation present (GI), No Guarding due to palpation present (GI) and No Rebound tenderness present Percussion: Yes normal to percussion Auscultation: normal bowel sounds : General: Yes no CVA tenderness Back/Spine/Pelvis: Back: no CVA tenderness Neuro: General: patient oriented x3, no focal motor deficits and CN's II-XI intact bilaterally Cognition (Neuro): normal cognition Speech: normal speech Motor exam (neuro): 5/5 motor strength present throughout Extrem: General: capillary refill normal and no clubbing, cyanosis or edema Assessment and Plan Assessment and plan (1) Screening for colon cancer: Code(s): Z12.11 - Encounter for screening for malignant neoplasm of colon Status: Acute Assessment and Plan: I have recommended colonoscopy. I have discussed the procedure, risks, benefits, and alternatives. Questions were answered. Patient is agreeable to proceed.
[2024-05-14 09:40] VITALS: BP 99/59; PULSE 58; RESP 15; O2SAT 97
[2024-05-14 09:50] VITALS: BP 101/63; PULSE 57; RESP 17; O2SAT 99
[2024-05-14 10:00] VITALS: BP 119/80; PULSE 58; RESP 15; O2SAT 100
--- OUTSIDE RECORDS SUMMARY | 2024-05-19 08:25 | XMS_ITS | Encounter Summary ---
Author Organization [facility] Address [address] [place] [address] Phone Care Team Providers Care Director Of Accreditation Name Role Phone Robin Abdi DO Primary Care Provider [phone]- [phone] Encounter Details Date Type Department Care Team (Late st Contact Info) Description 03/28/2023 Orders Only [facility] [address] [place] [address] Minda Vann MD [address] [facility] [address] [place], [place] [id number] Neoplasm of unspecified behavior of bone, soft tissue, and skin Social History Tobacco Use Types Packs/Day Years Used Date Smoking Tobacco: Never Smokeless Tobacco: Never Alcohol Use Standard Drinks/Week Comments Yes 0 (1 standard drink = 0.6 oz pur e alcohol) Comments Unknown Sex and Gender Information Value Date Recorded Sex Assigned at Not on file Legal Sex Female 9:22 AM CAD APPLICATION SUPPORT SPECIALIST Gender Identity Not on file Sexual Orientation Not on file documented as of this encounter Plan of Treatment Not on file documented as of this encounter Procedures Procedure Name Priority Date/Time Associated Diagnosis Comments SURGICAL PATHOLOGY Routine 03/28/2023 12 :00 AM CDT Neoplasm of unspecified behavior of bone, soft tissue, and skin documented in this encounter Results * Surgical pathology (03/28/2023 12:00 AM CDT) Tissue (Skin, punch biopsy) 03/28/2023 03/28/2023 1:22 PM CDT Narrative [facility] - 03/31/2023 3:25 PM CDT [facility] results best viewed via link to PDF [facility] [address] [place] [address]., ??[address] [place] [address] ? [email or web address] Note to Patients: ??This report may contain a detailed description of human tissue sent by a health care provider to the laboratory for pathologic evaluation. ??The content of this report is essential for diagnosis and may provide important critical findings. ??This information may be unfamiliar to patients to review without a medical professional present. ?? It is advised that the patient review this report in the presence of a health care provider who can answer questions and explain the details. FINAL REPORT Patient Information: PATIENT NAME: ??MARISOL AHMADI ? SEX: ??F ? : ??1975 (Age: 48) ? Specimen Information: COLLECTED: ??03/28/2023 ? RECEIVED: ??03/28/2023 ? REPORTED: ??03/31/2023 ? Submitting Physician Information: Minda Vann M.D. [address] [facility] [address] [place], [place] ??[address], ? DERMATOPATHOLOGY REPORT RESULTS ?? DIAGNOSIS: A. ??SKIN, RIGHT MEDIAL FOREARM, PUNCH BIOPSY: ? ANGIOLIPOMA ?? B. ??SKIN, RIGHT LOWER BACK, SHAVE BIOPSY: ? BASAL CELL CARCINOMA pavithra/lac By this signature, I attest that the above diagnosis is based upon my personal examination of the slides(and/or other material indicated in the diagnosis). Bekah Leavitt M.D. ?? Report Electronically Reviewed and Signed Out By ??Bekah Leavitt M.D. 03/31/2023 15:25:08 CLINICAL INFORMATION A. NOT SPECIFIED. B. R/O BCC. SPECIMEN DATA MICROSCOPIC DESCRIPTION: A. There is a well-circumscribed neoplasm composed of mature adipose tissue in which there are numerous small blood vessels, some of which contain fibrin thrombi. (D17.9) B. Irregular aggregates of atypical basal epithelial cells with palisading of their peripheral nuclei are present within the dermis. (C44.91) GROSS DESCRIPTION: A. Received in a formalin-containing bottle is an irregularly shaped portion of yellow, lobulated adipose tissue measuring 2.4 by 2.0 by 1.3 cm. The specimen is sectioned into 6 pieces revealing yellow, homogenous cut surfaces.Please note, epidermal tissue is not grossly identified. The specimen is entirely submitted in 3 cassettes. B. Received in a formalin-containing bottle is a superficial fragment of pale soria, finely scaling, and hair-bearing skin measuring 0.9 by 0.9 by 0.1 cm. The surgical margin is inked blue. The specimen is sectioned into 3 pieces and submitted entirely in a single cassette. Due to shrinkage, measurements may be different than those at the time of procedure. jn/dxv ?? , mxf ICD-9 ZSD.83 ZSD.176 ? Clerical Data A; 27279 B; 47315 The Characteristics of some immunohistochemical and immunofluorescence stains as well as in-situ hybridization tests were determined by the [facility] in ongoing quality lead and in compliance with regulations drawn from the Clinical Laboratory Improvement Act of 1988 (CLIA '88). These tests may rely on the use of analyte specific reagents that are subject to specific labeling requirements by the [place] FDA, and may only be performed in a facility that is certified by the [facility] as a high-complexity laboratory under CLIA '88. ??These tests are used for clinical purposes and are not investigational. ??For lab developed tests, the validation has been reviewed; the performance is considered acceptable for patient testing. Minda Vann MD LAB PATHOLOGY ORDERABLES Final Result [facility] [address] [place] [address] documented in this encounter Visit Diagnoses Diagnosis Neoplasm of unspecified behavior of bone, soft tissue, and skin documented in this encounter Care Teams Director Of Accreditation Relationship Specialty Start Date End Date Robin Abdi DO PCP - General 04/01/15 documented as of this encounter
--- OUTSIDE RECORDS SUMMARY | 2024-05-19 08:25 | XMS_ITS | Encounter Summary ---
Author Organization [facility] Address [address] [place] [address] Care Team Providers Care Refining Engineer Name Role Phone Robin Abdi DO Primary Care Provider [phone]- [phone] Encounter Details Date Type Department Care Team (Latest Contact Info) Description 11/22/2022 12:50 PM CDT - 11/22/2022 11:59 PM CDT Hospital Encounter [address] [address] Abscess Discharge Disposition: Discharge to home or self care Social History Tobacco Use Types Packs/Day Years Used Date Smoking Tobacco: Never Smokeless Tobacco: Never Alcohol Use Standard Drinks/Week Comments Yes 0 (1 standard drink = 0.6 oz pur e alcohol) Comments Unknown Sex and Gender Information Value Date Recorded Sex Assigned at Not on file 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 Gender Identity Not on file Sexual Orientation Not on file documented as of this encounter Medications at Time of Discharge sulfamethoxazole- trimethoprim (BACTRIM DS) 800-160 mg per tabletIndications :Abscess Take 1 tablet by mouth 2 (two) times a day for 7 days 14 tablet 11/22/2022 11/29/2022 documented as of this encounter Discharge Disposition Disposition Code Departure Means Destination Discharge to home or self care documented in this encounter Plan of Treatment Not on file documented as of this encounter Procedures Procedure Name Priority Date/Time Associated Diagnosis Comments AEROBIC AND ANAEROBIC CULTURE AND GRAM STAIN Routine 11/22/2022 12:50 PM CDT Abscess documented in this encounter Results * (ABNORMAL) Aerobic and anaerobic culture and gram stain Wound Neck (11/22/2022 12:50 PM CDT) Direct Specimen Exam Stain: No polymorphonuclear leukocytes seen. No organisms seen. SHY Comment:Testing performed by : [facility], [address] [place]., [address] Report Final Report: Few Mixed anaerobic microorganisms (.) SHY Comment:Testing performed by : [facility], [address] [place]., [address] Organism MIXED ANAEROBIC MICROORGANISMS SHY Wound (Neck) 11/22/2022 12:5 0 PM CDT 11/22/2022 10:56 PM CDT Narrative SHY - 11/26/2022 10:45 AM CDT Specimen received on an ESwab. Testing performed by [facility] ([phone]) Specimens submitted from normally sterile body sites will have all bacterial morphotypes identified. Specimens that contain grossly mixed roberto and/or are from body sites that are not normally sterile will be examined for Staphylococcus aureus, Pseudomonas aeruginosa, beta-hemolytic strep, vancomycin-resistant Enterococcus, Bacteroides, Parabacteroides, Clostridium perfringens and fungus. If any of these are isolated, the organism will be reported. Current interpretive data was last revised on 2019. Tyler Garvey NP LAB MICROBIOLOGY - GENERAL ESTRELLITA TOMAS Final Result [facility] [address] [address] [place] Department of Laboratories [place], [place] [id number] documented in this encounter Visit Diagnoses Diagnosis Abscess Cellulitis and abscess of unspecified site documented in this encounter Care Teams Refining Engineer Relationship Specialty Start Date End Date Robin Abdi DO PCP - General 04/01/15 documented as of this encounter
--- OUTSIDE RECORDS SUMMARY | 2024-05-19 08:25 | XMS_ITS | Encounter Summary ---
Author Organization [facility] Address [address] [place] [address] Care Team Providers Care Division Operations Specialist Name Role Phone Robin Abdi DO Primary Care Provider [phone]- [phone] Reason for Visit * Diagnostic Imaging (Routine) - Closed Specialty Diagnoses / Procedures Referred By Grady barakat Referred To Contact Diagnoses Left hip pain Procedures XR Hips Bilateral 3 or 4 Views XR Hip Left 2 or 3 Views Yuliet Baez PA Phone: tel: fax: [facility] Referral ID Status Reason Start Date Expiration Date Visits Re quested Visits Authorized [id number] Closed 12/27/2022 01/26/2024 1 1 Encounter Details Date Type Department Care Team (Latest Contact Info) Description 12/27/2022 7:51 AM CDT - 12/27/2022 11:59 PM CDT Hospital Encounter [facility] [address] [place] [address] [address], [place] [address] Discharge Disposition: Discharge to home or self care Social History Tobacco Use Types Packs/Day Years Used Date Smoking Tobacco: Never Smokeless Tobacco: Never Alcohol Use Standard Drinks/Week Comments Yes 0 (1 standard drink = 0.6 oz pur e alcohol) Comments Unknown Sex and Gender Information Value Date Recorded Sex Assigned at Not on file 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 Gender Identity Not on file Sexual Orientation Not on file documented as of this encounter Discharge Disposition Disposition Code Departure Means Destination Discharge to home or self care documented in this encounter Plan of Treatment Not on file documented as of this encounter Procedures Procedure Name Priority Date/Time Associated Diagnosis Comments XR HIPS BILATERAL 3 OR 4 VW Schedule Routine, Read Routine (OP Routine) 12/27/2022 11:14 AM CDT Acute bilateral low back pain, unspecified whether sciatica present documented in this encounter Results * XR Hips Bilateral 3 or 4 Views (12/27/2022 11:14 AM CDT) Anatomical Region Laterality Modality Lower Extremities, Hip, Pelvis Bilateral D igital Radiography Narrative 12/27/2022 12:17 PM CDT AP pelvis and false profile radiographs taken of the bilateral hips today reveal moderate degenerative changes with subchondral sclerosis, osteophyte formation, and diminished joint space. us Yuliet GRACE IMG XR PROCEDURES Final Resu lt documented in this encounter Visit Diagnoses Not on filedocumented in this encounter Care Teams Division Operations Specialist Relationship Specialty Start Date End Date Robin Abdi DO PCP - General 04/01/15 documented as of this encounter
--- OUTSIDE RECORDS SUMMARY | 2024-05-19 08:25 | XMS_ITS | Referral Summary ---
Author Organization [facility] Address [address] [place] [address] Care Team Providers Care Retail Store Assistant Name Role Phone Robin Abdi DO Primary Care Provider [phone]- [phone] Encounters Date Type Department Care Team Description 04/13/2024 8:45 AM WASTEWATER ANALYST LAB ANALYST Office Visit [facility] D[facility] [address] [facility] [address] [place] [address] Minda Vann MD Sebaceous gland hyperplasia (Primary Dx); Seborrheic keratosis; Multiple benign nevi; History of nonmelanoma skin cancer from Last 3 Months Allergies No known active allergies Medications predniSONE (DELTASONE) 10 mg tabletIndicatio ns:Poison roxana dermatitis Take 4 tablets days 1-3, take 3 tablets days 4-6, take 2 tablets days 7-9, take 1 tablet days 10-14 32 tablet 12/31/2023 Active Active Problems Problem Noted Date Diagnosed Date Vaginitis 11/22/2022 Lipoma of arm 09/02/2017 Seborrheic keratosis 09/02/2017 Sebaceous gland hyperplasia 08/11/2016 Benign neoplasm of soft tissues 08/11/2016 History of basal cell carcinoma (BCC) 08/11/2016 Dermatofibroma 11/21/2015 Neoplasm of connective and soft tissue 4 Asteatosis cutis 06/02/2012 Social History Tobacco Use Types Packs/Day Years Used Date Smoking Tobacco: Never Smokeless Tobacco: Never Tobacco Cessation:Counseling Given: Not Answered Alcohol Use Standard Drinks/Week Comments Yes 0 (1 standard drink = 0.6 oz pur e alcohol) Comments Unknown Sex and Gender Information Value Date Recorded Sex Assigned at Not on file Legal Sex Female 9:22 AM WASTEWATER ANALYST LAB ANALYST Gender Identity Not on file Sexual Orientation Not on file Last Filed Vital Signs Vital Sign Reading Time Taken Comments Blood Pressure 128/80 12/31/2023 8:39 AM CDT Pulse 62 12/31/2023 8:39 AM CDT Temperature 36.2 ??C (97.2 ??F) 12/31/2023 8:39 AM CD T Respiratory Rate 16 12/31/2023 8:39 AM CDT Oxygen Saturation 100% 12/31/2023 8:39 AM CDT Inhaled Oxygen Concentration - - Weight 81.7 kg (180 lb 1.6 oz) 12/31/2023 8:39 A M CDT Height 180.3 cm (5' 11 ) 12/31/2023 8:39 AM CDT Body Mass Index 25.12 12/31/2023 8:39 AM CDT Plan of Treatment Not on file [facility] [employer] OPEN ACCESS [facility] [id number] Care Teams Retail Store Assistant Relationship Specialty Start Date End Date Robin Abdi DO [facility] - General 04/01/15
--- OUTSIDE RECORDS SUMMARY | 2024-05-19 08:25 | XMS_ITS | Clinical Summary ---
Author Organization [facility] Address [address] [place] [id number] Care Team Providers Care Education Dean Name Role Phone Robin Abdi DO Primary Care Provider +1- [phone] Allergies No known active allergies Medications predniSONE [...] and soft tissue 4 Asteatosis cutis 06/02/2012 Encounters Date Type Department Care Team Description 04/13/2024 8:45 AM PHARMACEUTICAL PLANT OPERATOR Office Visit [facility] Dermatology [address] [facility] [address] [place] [address] Minda Vann MD Sebaceous gland hyperplasia (Primary Dx); Seborrheic keratosis; Multiple benign nevi; History of nonmelanoma skin cancer from Last 3 Months Surgical History Surgery Date Site/Laterality Comments APPENDECTOMY UTERINE FIBROID SURGERY WISDOM TOOTH EXTRACTION Medical History Medical History Date Comments Personal history of other ma lignant neoplasm of skin History of skin cancer - (Ad ded by TW Conv) Cancer (CMS/HCC) (HCC) Anemia Family History Medical History Relation Name Comments Skin cancer Maternal Grandmother Family history of skin cancer - (Added by TW Conv) Relation Name Status Comments Maternal Grandmother Social History Tobacco Use Types Packs/Day Years Used Date Smoking Tobacco: Never Smokeless Tobacco: Never Tobacco Cessation:Counseling Given: Not Answered Alcohol Use Standard Drinks/Week Comments Yes 0 (1 standard drink = 0.6 oz pur e alcohol) Comments Unknown Sex and Gender Information Value Date Recorded Sex Assigned at Not on file Legal Sex Female 9:22 AM PHARMACEUTICAL PLANT OPERATOR Gender Identity Not on file Sexual Orientation Not on file Obstetrics History Last Filed Vital Signs Vital Sign Reading [...] 12/31/2023 8:39 AM CDT Plan of Treatment Health Maintenance Due Date Last Done Comments Breast Cancer Screening-Mammogram 1976 Cervical Cancer Screening 1976 Colon Cancer Screening-Colonoscopy 1976 Depression Screening 1976 Hepatitis C Screening 1976 Hepatitis B Screening 1994 Regular Well Visit/Exam 18-64 1994 Covid-19 Vaccine (2023-2 5 season) 2024 05/28/2021, 07/16/2020, 06/17/2020 Influenza Vaccine (#1) 2024 DTaP/Tdap/Td Vaccine (2 - Td or Tdap) 05/10/2029 05/10/2019 Pneumococcal vaccine <65 Aged Out No longer eligible based on patient's age to complete this topic Insurance [facility] [id number] Member Subscriber Plan / Payer (Ef fective 2021-Present) Name:Marychristina Marisol M Member ID:[id number] Relation to Subscriber:Self Name:Marisol Ahmadi Linwood Subscriber ID:[id number] Payer ID:[id number] Type:[employer] HMO/PPO Address: [facility] [id number] [id number] Care Teams Education Dean Relationship Specialty Start Date End Date Robin Abdi DO PCP - General 04/01/15
--- OUTSIDE RECORDS SUMMARY | 2024-05-19 08:25 | XMS_ITS | Encounter Summary ---
Author Organization [facility] Address [address] [place] [address] Phone Care Team Providers Care Clearance Center Manager Name Role Phone Robin Abdi DO Primary Care Provider +1- [phone] Reason for Visit * Reason Comments Annual Exam Encounter Details Date Type Department Care Team (Late st Contact Info) Description 04/13/2024 8:45 AM BACTERIOLOGY RESEARCH ASSISTANT Office Visit [facility] Dermatology [address] [place] [address] Out[address] Health [address] [place], [place] [phone] Minda Vann MD [address] [place] [address] Sebaceous gland hyperplasia (Primary Dx); Seborrheic keratosis; Multiple benign nevi; History of nonmelanoma skin cancer Social History Tobacco Use Types Packs/Day Years Used Date Smoking Tobacco: Never Smokeless Tobacco: Never Alcohol Use Standard Drinks/Week Comments Yes 0 (1 standard drink = 0.6 oz pur e alcohol) Comments Unknown Sex and Gender Information Value Date Recorded Sex Assigned at Not on file Legal Sex Female 9:22 AM BACTERIOLOGY RESEARCH ASSISTANT Gender Identity Not on file Sexual Orientation Not on file documented as of this encounter Progress Notes * Minda Vann MD - 04/13/2024 8:45 AM CST DERMATOLOGY OUTPATIENT NOTE CC: FBSE HPI: Marisol Ahmadi is a 48 F with PMH of BCC R lower back s/p EDC , BCC R upper back s/p excision, multiple angiolipomas who presents today for FBSE. Pt reports no concerns today. Reports more yellow spots on face and would like to discuss treatment/preventative options. Otherwise patient has not noticed any non-healing sores, new/changing moles, or rashes. MEDICATIONS/ALLEGIES/FAMILY HX/SOCIAL HX: Reviewed in chart ROS: Constitutional: No fever, no chills, no unintended weight loss Skin: No itching, no non-healing sores Oral: No mouth sores Genitourinary: No genital sores Other ROS per the HPI PHYSICAL EXAM: Physical Exam: Gen: WD, WN, NAD; Neuro: A&O; Psyc: Normal mood and affect; Skin exam: Inspected the Scalp/Hair, Head/Face, Conjunctivae/Lids, Oropharynx/Lips, Neck, R. Upper Extremity, L. Upper Extremity, Chest/Breast, Abdomen, Back, R. Lower Extremity, L. Lower Extremity, Buttocks, Genitalia Examination normal with the following exceptions: Dome-shaped yellow papules with central dell on forehead and cheeks Multiple homogenous brown macules and papules on trunk, extremities Hyperkeratotic, stuck-on appearing brown papule right thigh WHSS on left shoulder, right lower back ASSESSMENT AND PLAN: Sebaceous Hyperplasia - Benign. Patient reassured. - Recommended OTC Differin gel, SER - Cosmetic card provided to patient today Seborrheic Keratoses - Discussed benign nature. Patient reassured. Multiple benign nevi - Benign, patient reassured. - Reviewed ABCDE's and photoprotection including protective clothing and SPF 30+ - Recommend regular self-skin checks and yearly MD skin check History of non-melanoma skin cancer - NER - Reviewed ABCDEs and photoprotection including protective clothing and SPF 30+ - Recommended monthly self skin exams and yearly MD skin exams RTC: 1 year Patient was instructed to return sooner should they develop any new, changing and/or worsening lesions, side effects of any recommended treatments, or as needed. Kedar Garcia MD Dermatology Resident, PGY-2 April 13, 2024 I have seen and examined the patient. I agree with the findings and plan of care as documented in the resident's note. Minda Vann MD ERIOLOGY RESEARCH ASSISTANT documented in this encounter Plan of Treatment Not on file documented as of this encounter Visit Diagnoses Diagnosis Sebaceous gland hyperplasia- Primary Seborrheic keratosis Multiple benign nevi History of nonmelanoma skin cancer documented in this encounter Care Teams Clearance Center Manager Relationship Specialty Start Date End Date Robin Abdi DO PCP - General 04/01/15 documented as of this encounter
--- OUTSIDE RECORDS SUMMARY | 2024-05-19 08:25 | XMS_ITS | Encounter Summary ---
Author Organization [facility] Address [address] [place] [address] Phone Care Team Providers Care Cinder Dump Crane Operator Name Role Phone Robin Abdi DO Primary Care Provider [phone]- [phone] Encounter Details Date Type Department Care Team (Late st Contact Info) Description 04/18/2023 8:45 AM CLINICAL NURSING INSTRUCTOR Office Visit [facility] Dermatology [facility] [address] [place] [id number] Minda Vann MD [address] [id number] Basal cell carcinoma (BCC) of lower back (Primary Dx) Social History Tobacco Use Types Packs/Day Years Used Date Smoking Tobacco: Never Smokeless Tobacco: Never Alcohol Use Standard Drinks/Week Comments Yes 0 (1 standard drink = 0.6 oz pur e alcohol) Comments Unknown Sex and Gender Information Value Date Recorded Sex Assigned at Not on file Legal Sex Female 9:22 AM CLINICAL NURSING INSTRUCTOR Gender Identity Not on file Sexual Orientation Not on file documented as of this encounter Progress Notes * Minda Vann MD - 04/18/2023 8:45 AM CST CC: Here to treat previously biopsied basal cell carcinoma - see emr DIAGNOSIS: B. SKIN, RIGHT LOWER BACK, SHAVE BIOPSY: BASAL CELL CARCINOMA PE: Crown thin biopsy scar on right lower back PATIENT NAME: Marisol Palumbo Galdino : 1975 KARL: 04/18/23 PROCEDURE: Electrodessication and Curettage PREOPERATIVE DIAGNOSIS: basal cell carcinoma POSTOPERATIVE DIAGNOSIS: Same SIZE OF LESION AFTER FIRST PASS: 1.8 cm ANESTHESIA: 1% lidocaine with epinephrine, 1:100,000, x 3 ccs. LOCATION: right lower back DRESSING: Vaseline, bandage DESCRIPTION OF PROCEDURE: Verified no lidocaine or hibiclens allergy Informed consent was obtained,including discussion of risks including bleeding, scarring, infection, and recurrence/persistence. The location identified above was prepped with Hibiclens and draped with sterile sheets and towels prior to infiltration with 1% lidocaine with epinephrine, 1:100,000. After local anesthesia was infilt rated and maximal epinephrine effect achieved, the first pass of the lesion was carried out with a curette. This was followed by electrodesiccation ( to include 3 mm margins ). This cycle was repeated for a total of 2 cycles. Final hemostasis was obtained with electrodesiccation, and there were no c omplications. Wound care instructions were provided in verbal and written form including a 24-hour contact number in case of emergency. [place] Protocol Time-Out performed. Patient also notes lesion of concern on left anterior thigh. On exam, soria stuck- on appearing macule. Macular SK, benign, reassurance provided. Jaydon Garrido MD PGY2 Dermatology Resident 04/18/23 I have seen and examined the patient. I agree with the findings and plan of care as documented in the resident's note, and I was present for the entire procedure. Minda Vann MD ICAL NURSING INSTRUCTOR documented in this encounter Plan of Treatment Not on file documented as of this encounter Visit Diagnoses Diagnosis Basal cell carcinoma (BCC) of lower back- Primary documented in this encounter Care Teams Cinder Dump Crane Operator Relationship Specialty Start Date End Date Robin Abdi DO PCP - General 04/01/15 documented as of this encounter
--- OUTSIDE RECORDS SUMMARY | 2024-05-19 08:25 | XMS_ITS | Encounter Summary ---
Author Organization [facility] Address [address] [facility] [address] [place] [address] Care Team Providers Care Art Sales Consultant Name Role Phone Robin Abdi DO Primary Care Provider [phone]- [phone] Encounter Details Date Type Department Care Team (Late st Contact Info) Description 12/27/2022 Telephone [facility] Orthopedics and Sports Medicine [address] [facility] [address] [place] [address] Dawson Garcia MD [address] [place] [address] [address] [place] [address] Social History Tobacco Use Types Packs/Day Years Used Date Smoking Tobacco: Never Smokeless Tobacco: Never Alcohol Use Standard Drinks/Week Comments Yes 0 (1 standard drink = 0.6 oz pur e alcohol) Comments Unknown Sex and Gender Information Value Date Recorded Sex Assigned at Not on file Legal Sex Female 9:22 AM LAP WINDER Gender Identity Not on file Sexual Orientation Not on file documented as of this encounter Miscellaneous Notes * Addendum Note - Camille Díaz MA - 12/27/2022 2:05 PM CDTAddended by: CAMILLE DÍAZ on: 12/27/2022 02:05 PM Modules accepted: Orders * Telephone Encounter - Camille Díaz MA - 12/27/2022 2:03 PM CDT Spoke with patient informed she can check with [facility]. Otherwise she will have to call her insurance and see who is in network with her insurance. Patient verbalized understanding. Will check with [facility] and let us know if order needs to be cancelled. * Telephone Encounter - Chayito Montague - 12/27/2022 1:39 PM CDT Patient called stating that she originally wanted to have her MRI at [facility] but that facility doesn't take her insurance. She is wanting recommendation of where to go. documented in this encounter Plan of Treatment Not on file documented as of this encounter Visit Diagnoses Diagnosis Acute bilateral low back pain, unspecified whether sciatica present- Primary documented in this encounter Care Teams Art Sales Consultant Relationship Specialty Start Date End Date Robin Abdi DO PCP - General 04/01/15 documented as of this encounter
--- OUTSIDE RECORDS SUMMARY | 2024-05-19 08:25 | XMS_ITS | Encounter Summary ---
Author Organization [facility] Address [address] [facility] [address] [place] [address] Care Team Providers Care Under Trimmer Name Role Phone Robin Abdi DO Primary Care Provider [phone]- [phone] Reason for Referral * Diagnostic Imaging (Routine) - Closed Specialty Diagnoses / Procedures Referred By Grady barakat Referred To Contact Diagnoses Left hip pain Procedures XR Hips Bilateral 3 or 4 Views XR Hip Left 2 or 3 Views Yuilet Baez PA Phone: tel: fax: [facility] Referral ID Status Reason Start Date Expiration Date Visits Re quested Visits Authorized [id number] Closed 12/27/2022 01/26/2024 1 1 Reason for Visit * Reason Comments Pain Encounter Details Date Type Department Care Team (Late st Contact Info) Description 12/27/2022 11:15 AM CDT Office Visit [facility] Orthopedics and Sports Medicine [address] [facility] [address] [place] [address] Yuliet Baez PA [address] [place] [address] [address] [place] [address] Acute bilateral low back pain, unspecified whether sciatica present (Primary Dx) Social History Tobacco Use Types Packs/Day Years Used Date Smoking Tobacco: Never Smokeless Tobacco: Never Alcohol Use Standard Drinks/Week Comments Yes 0 (1 standard drink = 0.6 oz pur e alcohol) Comments Unknown Sex and Gender Information Value Date Recorded Sex Assigned at Not on file Legal Sex Female 9:22 AM MANAGER SUPPLY CHAIN Gender Identity Not on file Sexual Orientation Not on file documented as of this encounter Last Filed Vital Signs Vital Sign Reading Time Taken Comments Blood Pressure 119/82 12/27/2022 11:19 AM CDT Pulse 79 12/27/2022 11:19 AM CDT Temperature - - Respiratory Rate - - Oxygen Saturation - - Inhaled Oxygen Concentration - - Weight 79.3 kg (174 lb 12.8 oz) 023 11:19 AM CDT Height 180.3 cm (5' 11 ) 12/27/2022 11: 19 AM CDT Body Mass Index 24.38 12/27/2022 11:19 AM CDT documented in this encounter Progress Notes * Yuliet Baez PA - 12/27/2022 11:15 AM CDT Images from the original note were not included. NEW PATIENT VISIT Subjective CHIEF COMPLAINT She had concerns including Pain of the Bilateral Hips. HISTORY OF PRESENT ILLNESS Marisol Ahmadi is a pleasant 47 y.o. female who presents today with complaints of bilateral hip pain. The left hip pain has been going on for approximately 4-5 months. She points to the pain in the groin at the lateral aspect. She feels the pain when going from sitting to standing out of a carand describes it as a sharp pain. She is tried exercising and performing physical therapy exerciseswithout relief. She is also tried resting for prolonged time and even running, which did not help. The pain is worse with movement better with ibuprofen. The severity of her pain varies. The right hip pain has been going on for about 1 week and is located posteriorly in the lower back and gluteal muscles. She is currently doing chiropractic therapy and has performed PT exercises at their facility. She was also provided with an anti-inflammatory intramuscular injection, which seemedto help for about 1 week. She is unable to bend forward and touch her toes without experiencing thepain. Her past medical history includes basal cell carcinoma in 2010, anemia. Her past surgical history includes appendectomy 2018, fibroids, wisdom teeth removal. She currently works as a professor and ismarried. She lives with her and 2 kids. She denies any tobacco use or smoking. She reports frequent alcohol use. Her BMI in the office today is 24.38. Pain Assessment Pain Assessment: 0-10 Pain Score: 8 PAST MEDCIAL HISTORY She has a past medical history of Anemia, Cancer (CMS/HCC) (HCC), and Personal history of other malignant neoplasm of skin. PAST SURGICAL HISTORY She has a past surgical history that includes Appendectomy; Uterine fibroid surgery; and [place] tooth extraction. MEDICATIONS She currently has no medications in their medication list. ALLERGIES She has No Known Allergies. SOCIAL HISTORY She reports that she has never smoked. She has never used smokeless tobacco. No alcohol history on file. FAMILY HISTORY Her family history includes Skin cancer in her maternal grandmother. REVIEW OF SYSTEMS Review of Systems Constitutional: Negative for activity change, appetite change, chills and fever. HENT: Negative for congestion, dental problem, ear pain, hearing loss and voice change. Eyes: Negative for pain and visual disturbance. Respiratory: Negative for apnea, cough, chest tightness and shortness of breath. Cardiovascular: Negative for chest pain, palpitations and leg swelling. Gastrointestinal: Negative for blood in stool, constipation, diarrhea, nausea and vomiting. Endocrine: Negative for cold intolerance and heat intolerance. Genitourinary: Negative for difficulty urinating and hematuria. Musculoskeletal: Positive for arthralgias and myalgias. Skin: Negative for color change, rash and wound. Allergic/Immunologic: Negative for environmental allergies. Neurological: Negative for dizziness, syncope, numbness and headaches. Hematological: Negative for adenopathy. Does not bruise/bleed easily. Psychiatric/Behavioral: Negative for confusion. The patient is not nervous/anxious and is not hyperactive. Objective PHYSICAL EXAM BP 119/82 Pulse 79 Ht 180.3 cm (5' 11 ) Wt 79.3 kg (174 lb 12.8 oz) BMI 24.38 kg/m?? Spine Inspection Patient has normal inspection of the lumbar spine. Surgical Scar/Wound: absent. The patients gait is antalgic. Palpation Tenderness is: present. The patient has tenderness in the lumbar, paraspinal, midline and gluteal area. Range of motion The patient has normal thoracic range of motion. Hip range of motion is normal. No pain is reproduced with hip range of motion. Knee range of motion is normal. No pain is reproduced with knee range of motion. The patient has reduced lumbar range of motion. The patient has pain with lumbar range of motion. The patient has no pain with lumbar extension. The patient has pain with lumbar flexion. The patient has no pain with lateral bend to the right. The patient has no pain with lateral bend to the left. The patient has no pain with rotation to the left. The patient has no pain with rotation to the left. Right strength The patient has 5/5 strength throughout. Left strength Patient has 5/5 strength throughout. Right neurovascular The patient has normal vascular on the right side of their body. The patient has normal light touch sensation. Left neurovascular The patient has normal vascular on the left side of their body. The patient has normal light touch sensation. Tests Right straight leg raise: negative Left straight leg raise: negative Right LORIE: negative Left LORIE: negative Right hip Inspection Erythema: absent Edema: absent Swelling: absent Effusion: absent Skin temperature: normal Surgical scar/wound: absent. Gait: antalgic Supportive device: none Palpation The patient has normal palpation of the right hip. Tenderness: absent. Range of motion The patient has normal range of motion of the right hip. The patient does not have pain with range of motion of the right hip. Strength The patient has 5/5 strength throughout. Neurovascular The patient has normal vascular on the right side of their body. The patient has normal sensation. Tests Anterior impingement: negative Posterior impingement: negative Lateral impingement: negative Anterior apprehension: negative LORIE: negative SLR (straight leg raise): negative Resisted SLR (straight leg raise): negative Psoas pain (resisted hip flexion): negative Left hip Inspection Erythema: absent Edema: absent Swelling: absent Effusion: absent Skin temperature: normal Surgical scar/wound: absent. Gait: antalgic Supportive device: none Palpation The patient has normal palpation of the left hip. Tenderness: absent. Range of motion The patient has normal range of motion of the left hip. The patient does not have pain with range of motion of the left hip. Strength The patient has 5/5 strength throughout. Neurovascular The patient has normal vascular on the left side of their body. The patient has normal sensation on the left side of their body. Tests Anterior impingement: negative Posterior impingement: negative Lateral impingement: negative Anterior apprehension: negative LORIE: negative Chan's: negative SLR (straight leg raise): negative Resisted SLR (straight leg raise): negative Psoas pain (resisted hip flexion): negative REVIEW OF X-RAYS/STUDIES/LABS XR Hips Bilateral 3 or 4 Views AP pelvis and false profile radiographs taken of the bilateral hips today reveal moderate degenerative changes with subchondral sclerosis, osteophyte formation, and diminished joint space. Assessment/Plan Marisol was seen today for pain. Diagnoses and all orders for this visit: Acute bilateral low back pain, unspecified whether sciatica present - Cancel: XR Hip Left 2 or 3 Views - XR Hips Bilateral 3 or 4 Views PLAN I explained to Marisol Ahmadi the nature of her condition and treatment options today. I recommended a lumbar MRI, as her hip range of motion and exam are normal. I recommended anti-inflammatories, physical therapy, and following up with a spinal specialist. We discussed physical therapy todayand she reports she is doing therapy exercises at the chiropractor. 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 She may follow up in the office as needed. She is encouraged to contact the office with any further questions or concerns. SANJAY Diaz documented in this encounter Plan of Treatment [...] lt documented in this encounter Visit Diagnoses Diagnosis Acute bilateral low back pain, unspecified whether sciatica present- Primary documented in this encounter Care Teams Under Trimmer Relationship Specialty Start Date End Date Robin Abdi DO PCP - General 04/01/15 documented as of this encounter
--- OUTSIDE RECORDS SUMMARY | 2024-05-19 08:25 | XMS_ITS | Encounter Summary ---
Author Organization [facility] Healthcare Address [address] [place] [address] Care Team Providers Care Air Quality Technician Name Role Phone Robin Abdi DO Primary Care Provider [phone] Reason for Visit * Reason Comments Rash Patient here for c/o rash that has been spreading for the last few weeks. Started on face and has been spreading down body. Encounter Details Date Type Department Care Team (Late st Contact Info) Description 12/31/2023 9:00 AM CDT Office Visit [facility] at [address] [phone] Arleen Petit, AQUATIC PHYSIOTHERAPIST [address] [place] [phone] Poison diana dermatitis (Primary Dx) Social History Tobacco Use Types Packs/Day Years Used Date Smoking Tobacco: Never Smokeless Tobacco: Never Tobacco Cessation:Counseling Given: Not Answered Alcohol Use Standard Drinks/Week Comments Yes 0 (1 standard drink = 0.6 oz pur e alcohol) Comments Unknown Sex and Gender Information Value Date Recorded Sex Assigned at Not on file 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 -Avoid the irritant/plant that started this rash, you will continue to have a reaction as long as you are exposed to it. -Avoid scratching or picking at rash. Doing so puts you at risk for a secondary skin infection. -Staying cool can help decrease the stinging and itching at rash site(s) (Take lukewarm bath or shower, NOT hot) -You may use xyvz-ous-yaxiniw anti-itch products as needed for comfort (calamine, Benadryl cream) Prevent a poison diana rash in the future: -Wear skin protection -Wash clothing after possible exposure -Bathe your pet: -Reduce exposure to poison diana -Do not burn poison diana plants -If prescribed an oral steroid: STEROID INSTRUCTIONS Take this medication with food, preferably breakfast. If taken too late, this medication can cause sleeplessness. Common side effects include increased blood pressure, increased water and sodium retention, increased weight gain, mood changes, and increased blood sugar. Do not take NSAIDS while taking this medication. This includes aspirin, Aleve, Ibuprofen, Naproxen,Midol, Advil, or any medications containing Ibuprofen or aspirin. TAKE ANTACIDS 2 HOURS APART FROM PREDNISONE Go to the ER or call 911 if you experience new onset fevers, personality changes, chest pain, uncontrollable blood sugars (in diabetics), stomach pain, severe generalized muscle pain, uncontrolled blood pressure, severe headaches, changes in vision, or seizures. GO TO THE EMERGENCY DEPARTMENT WITH ANY DEVELOPMENT OF FEVER, REDNESS, SWELLING, STREAKS COMING FROM THE RASH, OR TENDERNESS AROUND THE RASH * Attachments The following attachments cannot be sent through Care Everywhere. * Poison Diana (Discharge Care) (Welsh) documented in this encounter Ordered Prescriptions Prescription Sig Dispense Quantity Refills Last Filled Start Date End Date predniSONE (DELTASONE) 10 mg tabletIndications: Poison diana dermatitis Take 4 tablets days 1-3, take 3 tablets days 4-6, take 2 tablets days 7-9, take 1 tablet days 10-14 32 tablet 12/31/2023 documented in this encounter Progress Notes * Arleen Petit NP - 12/31/2023 9:00 AM CDT Images from the original note were not included. Subjective/Objective Patient ID: Marisol Ahmadi is a 48 y.o. female. Chief Complaint Rash (Patient here for c/o rash that has been spreading for the last few weeks. Started on face andhas been spreading down body. ) Patient presents to the clinic with reports of poison diana rash that started after working in her yard 2 weeks ago. She reports that the rash has been spreading. Denies fevers, vision changes, difficulty breathing, red streaking from rash, and chills. She has been applying triamcinolone for her symptoms. Review of Systems Constitutional: Negative for chills, fatigue and fever. Respiratory: Negative for cough. Cardiovascular: Negative for chest pain. Skin: Positive for rash. Neurological: Negative for weakness and headaches. Physical Exam Vitals reviewed. Constitutional: General: She is not in acute distress. Appearance: Normal appearance. She is not ill-appearing. HENT: Head: Normocephalic. Mouth/Throat: Lips: Gulf. Cardiovascular: Rate and Rhythm: Normal rate. Pulmonary: Effort: Pulmonary effort is normal. Breath sounds: Normal breath sounds. Skin: General: Skin is warm. Comments: Linear erythematous vesicles and papules present. No active drainage. Mild erythema surrounding lesions. No warmth or induration to site. No streaking from lesions. Neurological: Mental Status: She is alert and oriented to person, place, and time. Psychiatric: Mood and Affect: Mood normal. Vitals: 12/31/23 0839 BP: 128/80 Pulse: 62 Resp: 16 Temp: 36.2 ??C (97.2 ??F) SpO2: 100% Weight: 81.7 kg (180 lb 1.6 oz) Height: 180.3 cm (5' 11 ) Assessment/Plan # Dermatitis 2/2 Poison Diana --prednisone taper --continue triamcinolone (not to face for genitals) --OTC antihistamine: Zyrtec, Niyah, Claritin or benadryl for itching --Discussed staying cool as heat can exacerbate symptoms of rash --shower daily, wash effected areas with fragrance free soap and water prior to application of triamcinolone --ED presentation with one or more of the following symptoms: fever uncontrolled with antipyretics,shortness of breath, vision changes, chest discomfort, uncontrolled n/v/d --f/u with PCP if rash does not improve in 7-10 days Diagnoses and all orders for this visit: Poison diana dermatitis (Primary) - predniSONE (DELTASONE) 10 mg tablet; Take 4 tablets days 1-3, take 3 tablets days 4-6, take 2 tablets days 7-9, take 1 tablet days 10-14 Patient Education: -Please take all medications as prescribed. -Avoid the irritant/plant that started this rash, you will continue to have a reaction as long as you are exposed to it. -Avoid scratching or picking at rash. Doing so puts you at risk for a secondary skin infection. -Staying cool can help decrease the stinging and itching at rash site(s) (Take lukewarm bath or shower, NOT hot) -You may use iccr-egz-sikydcf anti-itch products as needed for comfort (calamine, Benadryl cream) Prevent a poison diana rash in the future: -Wear skin protection -Wash clothing after possible exposure -Bathe your pet: -Reduce exposure to poison diana -Do not burn poison diana plants -If prescribed an oral steroid: STEROID INSTRUCTIONS Take this medication with food, preferably breakfast. If taken too late, this medication can cause sleeplessness. Common side effects include increased blood pressure, increased water and sodium retention, increased weight gain, mood changes, and increased blood sugar. Do not take NSAIDS while taking this medication. This includes aspirin, Aleve, Ibuprofen, Naproxen,Midol, Advil, or any medications containing Ibuprofen or aspirin. TAKE ANTACIDS 2 HOURS APART FROM PREDNISONE Go to the ER or call 911 if you experience new onset fevers, personality changes, chest pain, uncontrollable blood sugars (in diabetics), stomach pain, severe generalized muscle pain, uncontrolled blood pressure, severe headaches, changes in vision, or seizures. GO TO THE EMERGENCY DEPARTMENT WITH ANY DEVELOPMENT OF FEVER, REDNESS, SWELLING, STREAKS COMING FROM THE RASH, OR TENDERNESS AROUND THE RASH Disposition Treatment plan including expectations, follow up, and return precautions discussed with patient/parent, verbalizes understanding. Medication dosage, use, and potential adverse reactions discussed with patient/parent. Advised to follow up with PCP if symptoms do not resolve as expected or sooner if condition worsens. Signs/symptoms warranting ER evaluation reviewed. Patient and/or guardian was given an opportunity to ask questions, questions answered. Arleen Petit NP 12/31/23 9:36 AM This office note has been partially dictated using Dunwell[employer] software, and as a result portions of the record may have been created with this software. Occasional wrong-word or '[id number]' substitutions may have occurred due to the inherent limitations of voice recognition software. Read the chartcarefully and recognize, using context, where substitutions have occurred. documented in this encounter Plan of Treatment Not on file documented as of this encounter Visit Diagnoses Diagnosis Poison diana dermatitis- Primary documented in this encounter Care Teams Air Quality Technician Relationship Specialty Start Date End Date Robin Abdi DO PCP - General 04/01/15 documented as of this encounter
--- OUTSIDE RECORDS SUMMARY | 2024-05-19 08:25 | XMS_ITS | Encounter Summary ---
Author Organization [facility] Address [address] [facility] [address] [place] [address] Phone Care Team Providers Care Manager Acquisition Name Role Phone Robin Abdi DO Primary Care Provider [phone]- [phone] Reason for Visit * Consultation (Routine) - Closed Specialty Diagnoses / Procedures Referred By Grady t Referred To Contact Dermatology Diagnoses History of basal cell carcinoma (BCC) Sebaceous gland hyperplasia Seborrheic keratosis Neoplasm of connective and soft tissue Robin Abdi, Phone: tel: fax: [facility] [address] [place] [address] [address] [place] [phone] Phone: tel: fax: Referral ID Status Reason Start Date Expiration Date V isits Requested Visits Authorized [id number] Closed Specialty Services Required 03/25/2023 04/23/2024 24 24 Encounter Details Date Type Department Care Team (Late st Contact Info) Description 03/28/2023 8:30 AM CDT Office Visit [facility] [address] [place] [address] Outpatient Health [address] [place] [phone] Minda Vann MD [address] [place] [id number] Neoplasm of unspecified behavior of bone, soft tissue, and skin (Primary Dx); History of basal cell carcinoma (BCC); Sebaceous gland hyperplasia; Seborrheic keratosis; Neoplasm of connective and soft tissue Social History Tobacco Use Types Packs/Day Years Used Date Smoking Tobacco: Never Smokeless Tobacco: Never Alcohol Use Standard Drinks/Week Comments Yes 0 (1 standard drink = 0.6 oz pur e alcohol) Comments Unknown Sex and Gender Information Value Date Recorded Sex Assigned at Not on file 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 Concerns today: - spot on the right forearm that is bigger and painful when she bumps against it so she would like it removed if possible MEDICATIONS/ALLEGIES/FAMILY HX/SOCIAL HX: Reviewed in chart ROS: [...] Genitalia Examination normal with the following exceptions: Brown plaque on the right lower back with scattered areas of erythema within Subcutaneous nodule on R medial forearm Routt papules with dimpling on the face ASSESSMENT AND PLAN: Neoplasm of Skin -Location: right medial forearm -Differential diagnosis: Lipoma -Punch biopsy per note below -Wound care reviewed Neoplasm of Skin -Location: Right lower back -Differential diagnosis: Inflamed SK vs BCC -Shave biopsy per note below -Wound care reviewed Sebaceous Hyperplasia, face - Benign. Patient reassured. Angiolipoma, multiple - Benign, reassured History of NMSC -NER -Reviewed ABCDEs and photoprotection including protective clothing and SPF 30+ - Recommended monthly self skin exams and yearly MD skin exams PROCEDURE: Shave biopsy LOCATION: right lower back PRE-OP DIAGNOSIS: Inflamed SK vs BCC POST-OP DIAGNOSIS: same LESION SIZE: 1 x 1 cm COMMENT: Informed consent was obtained, including a discussion of the risk for bleeding, infection,incomplete removal, scarring, and recurrence/persistence. [place] Protocol Time-Out performed. The lesional area was prepped with hibiclens prior to infiltration with 1.0% lidocaine with epinephrine, 1:100,000. The lesion was biopsied with a Dermablade. Hemostasis was obtained with aluminum chloride. The specimen was placed in a labeled container with formalin and sent to the dermatopathologylab. The wound was then dressed with petrolatum ointment and a pressure dressing. Wound care instructions were provided in verbal and written form. The patient will be contacted once pathology results are available. PROCEDURE: Punch biopsy LOCATION: right medial forearm PRE-OP DIAGNOSIS: Lipoma POST-OP DIAGNOSIS: same LESION SIZE: 2 x 2 cm DESCRIPTION OF PROCEDURE: Informed consent was obtained, including discussion of risks including bleeding, scarring, infection, and recurrence/persistence. [place] Protocol Time-Out performed. The lesional area was prepped with alcohol prior to infiltration with 1% lidocaine with epinephrine, 1:100,000 x 2 ml. The lesion was biopsied with a 4 mm punch. The specimen was placed in formalin and sent for routine histopathological evaluation. Hemostasis and closure was obtained with suture/s. There were no complications. The wound was then dressed with sterile petrolatum and a sterile dressing. Wound care instructions were provided in verbal and written form including a 24-hour contact number in case of emergency. The patient will be notified by one of the clinical staff (upon return to clinic or by phone) regarding the biopsy results and the need for further treatment. Sutures will be removed in 14 days. RTC: 1 year Sneha Shook MD 03/28/2023 8:30 AM I have seen and examined the patient. I agree with the findings and plan of care as documented in the resident's note, and I was present for the entire procedure. Minda Vann MD documented in this encounter Plan of Treatment Not on file documented as of this encounter Results * Surgical pathology (03/28/2023 12:00 AM CDT) Tissue (Skin, punch biopsy) 03/28/2023 03/28/2023 1:22 PM CDT [facility] - 03/31/2023 3:25 PM CDT EPIC results best viewed via link to PDF [facility] [address] ? [email or web address] Note to Patients: ??This report may contain [...] ? Submitting Physician Information: Minda Vann M.D. [id number] [facility] ([facility] [address] [place], [place] ??[address], ? DERMATOPATHOLOGY REPORT RESULTS ?? DIAGNOSIS: A. [...] ICD-9 ZSD.83 ZSD.176 ? Clerical Data A; 19961 B; 98199 The Characteristics of some immunohistochemical and immunofluorescence stains as well as in-situ hybridization tests were determined by the [facility] in ongoing quality control director and in compliance with regulations drawn from the Clinical Laboratory Improvement Act of 1988 (CLIA '88). These tests may rely on the use of analyte specific reagents that are subject to specific labeling requirements by the [place] FDA, and may only be performed in a facility that is certified by the [facility] as a high-complexity laboratory under CLIA '88. ??These tests are used for clinical purposes and are not investigational. ??For lab developed tests, the validation has been reviewed; the performance is considered acceptable for patient testing. Minda Vann MD LAB PATHOLOGY ORDERABLES Final Result [facility] [address] [place] [address] documented in this encounter Visit Diagnoses Diagnosis Neoplasm of unspecified behavior of bone, soft tissue, and skin- Primary History of basal cell carcinoma (BCC) Sebaceous gland hyperplasia Seborrheic keratosis Neoplasm of connective and soft tissue Neoplasm of unspecified nature of bone, soft tissue, and skin Neoplasm of unspecified behavior of bone, soft tissue, and skin documented in this encounter Orders Outpatient Referral Count Last Ordered Date Fir st Ordered Date AMB REFERRAL TO DERMATOLOGY 1 03/28/2023 documented in this encounter Care Teams Manager Acquisition Relationship Specialty Start Date End Date Robin Abdi DO PCP - General 04/01/15 documented as of this encounter
--- OUTSIDE RECORDS SUMMARY | 2024-05-19 08:25 | XMS_ITS | Encounter Summary ---
Author Organization [facility] Address [address] [place] [address] Phone Care Team Providers Care Welder Oxyhydrogen Name Role Phone Robin Abdi DO Primary Care Provider [phone]- [phone] Reason for Visit * Reason Onset Date Comments Biopsy 04/04/2023 Encounter Details Date Type Department Care Team (Late st Contact Info) Description 04/04/2023 Telephone [facility] [address] [facility] [address] [place] [address] Minda Vann MD [address] [id number] Biopsy Social History Tobacco Use Types Packs/Day Years Used Date Smoking Tobacco: Never Smokeless Tobacco: Never Alcohol Use Standard Drinks/Week Comments Yes 0 (1 standard drink = 0.6 oz pur e alcohol) Comments Unknown Sex and Gender Information Value Date Recorded Sex Assigned at Not on file 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 Vann. RVISOR SLEEPING BAG DEPARTMENT documented in this encounter Plan of Treatment Not on file documented as of this encounter Visit Diagnoses Not on filedocumented in this encounter Care Teams Welder Oxyhydrogen Relationship Specialty Start Date End Date Robin Abdi DO PCP - General 04/01/15 documented as of this encounter
--- OUTSIDE RECORDS SUMMARY | 2024-05-19 08:26 | XMS_ITS | Encounter Summary ---
Author Organization [facility] Address [address] [facility] [address] [place] [address] Care Team Providers Care Labor Gang Supervisor Name Role Phone Robin Abdi DO Primary Care Provider [phone]- [phone] Reason for Visit * Reason Comments Insect Bite Pt has a spider bite on her neck that she woke up with on Tuesday morning. 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 Gender Identity Not on file Sexual Orientation Not on file documented as of this encounter Last Filed Vital Signs Vital Sign Reading Time Taken Comments Blood Pressure 104/72 11/22/2022 12:37 PM CDT Pulse 63 11/22/2022 12:37 PM CDT Temperature 36.9 ??C (98.4 ??F) 11/22/2022 12:37 PM C DT Respiratory Rate 18 11/22/2022 12:37 PM CDT Oxygen Saturation 97% 11/22/2022 12:37 PM CDT Inhaled Oxygen Concentration - - Weight 77.1 kg (170 lb) 11/22/2022 12:37 PM CDT Height 180.3 cm (5' 11 ) 11/22/2022 12:37 PM CDT Body Mass Index 23.71 11/22/2022 12:37 PM CDT documented in this encounter Patient Instructions * Attachments The following attachments cannot be sent through Care Everywhere. * Cold Compress or Soak (AfterCare(R) Instructions(ER/ED)) (Jamaican) * Abscess (AfterCare(R) Instructions(ER/ED)) (Jamaican) documented in this encounter Ordered Prescriptions Prescription Sig Dispense Quantity Refills Last Filled Start Date End Date sulfamethoxazole-t rimethoprim (BACTRIM DS) 800-160 mg per tabletIndications: Abscess Take 1 tablet by mouth 2 (two) times a day for 7 days 14 tablet 11/22/2022 11/29/2022 documented in this encounter Progress Notes * Tyler Garvey NP - 11/22/2022 12:30 PM CDT Images from the original note were not included. Subjective/Objective Patient ID: Marisol Ahmadi is a 47 y.o. female. Chief Complaint Insect Bite (Pt has a spider bite on her neck that she woke up with on Tuesday.) Patient presents to convenient care with complaints of possible insect bite. Patient states she woke up with bump on left side and neck on Tuesday. Patient did not see an insect bite her. Patient states it had a white head on it and she was able to squeeze it and get some pus out. Patientstates bump is firm to touch and there has not been any improvement since Tuesday. Patient denies history of MRSA. Review of Systems Constitutional: Negative for appetite change, chills, diaphoresis, fatigue and fever. HENT: Negative for trouble swallowing. Respiratory: Negative for cough, shortness of breath and wheezing. Cardiovascular: Negative for chest pain and palpitations. Gastrointestinal: Negative for diarrhea, nausea and vomiting. Skin: Positive for wound. Negative for rash. Allergic/Immunologic: Negative for environmental allergies and food allergies. Neurological: Negative for headaches. Psychiatric/Behavioral: Negative for behavioral problems. Physical Exam Vitals and nursing note reviewed. Constitutional: Appearance: Normal appearance. Neck: Cardiovascular: Rate and Rhythm: Normal rate. Pulses: Normal pulses. Pulmonary: Effort: Pulmonary effort is normal. Musculoskeletal: Cervical back: Full passive range of motion without pain, normal range of motion and neck supple. Skin: General: Skin is warm and dry. Capillary Refill: Capillary refill takes less than 2 seconds. Findings: Abscess present. Comments: Able to manually manipulate some purulent drainage, culture sent Neurological: Mental Status: She is alert and oriented to person, place, and time. Vitals: 11/22/22 1237 BP: 104/72 Pulse: 63 Resp: 18 Temp: 36.9 ??C (98.4 ??F) SpO2: 97% Weight: 77.1 kg (170 lb) Height: 180.3 cm (5' 11 ) No results found. Past Medical History: Diagnosis Date Personal history of other malignant neoplasm of skin History of skin cancer - (Added by TW Conv) Current Outpatient Medications: sulfamethoxazole-trimethoprim (BACTRIM DS) 800-160 mg per tablet, Take 1 tablet by mouth 2 (two) times a day for 7 days, Disp: 14 tablet, Rfl: 0 No Known Allergies Social History Tobacco Use Smoking status: Never Smokeless tobacco: Never Substance and Sexual Activity Drug use: Not on file Sexual activity: Not on file Alcohol Use: Not on file No past surgical history on file. Assessment/Plan Diagnoses and all orders for this visit: Abscess (Primary) - sulfamethoxazole-trimethoprim (BACTRIM DS) 800-160 mg per tablet; Take 1 tablet by mouth 2 (two) times a day for 7 days - Aerobic and anaerobic culture and gram stain Wound Neck; Future Patient Education: Keep area clean and dry. Warm moist compresses, 3 to 4 times a day for approximately 10-15 minutes each time. Seek immediate medical attention for fever, increased redness, increased pain, increased swelling, a red line from wound, chills, nausea and/or vomiting. As this may indicate worsening of the infection. Return to the [facility] or your Primary Care Physician if the red border around the infection area is increasing and/or if symptoms are not improving in 48 hours. Educational handout given on abscesses and warm compresses. Disposition Treatment plan including expectations, follow up, and return precautions discussed with patient/parent, verbalizes understanding. Medication dosage, use, and potential adverse reactions discussed with patient/parent. Advised to follow up with PCP if symptoms do not resolve as expected or sooner if condition worsens. Signs/symptoms warranting ER evaluation reviewed. Patient and/or guardian was given an opportunity to ask questions, questions answered. Tyler Garvey NP This office note has been partially dictated using [employer] software, and as a result portions of the record may have been created with this software. Occasional wrong-word or '[id number]' substitutions may have occurred due to the inherent limitations of voice recognition software. Read the chartcarefully and recognize, using context, where substitutions have occurred. documented in this encounter Plan of Treatment Not on file documented as of this encounter Results * (ABNORMAL) Aerobic and anaerobic culture and gram stain Wound Neck (11/22/2022 12:50 PM CDT) Direct Specimen Exam Stain: No polymorphonuclear leukocytes seen. No organisms seen. [facility] Comment:Testing performed by : [facility], [address] [place]., [address] Report Final Report: Few Mixed anaerobic microorganisms (.) [facility] Comment:Testing performed by : [facility], [address] [place]., [address] Organism MIXED ANAEROBIC MICROORGANISMS [facility] Wound (Neck) 11/22/2022 12:5 0 PM CDT 11/22/2022 10:56 PM CDT Narrative [facility] - 11/26/2022 10:45 AM CDT Specimen received on an ESwab. Testing performed by [facility] ([phone]) Specimens submitted from normally sterile body sites [...] interpretive data was last revised on 2019. us Tyler Garvey NP LAB MICROBIOLOGY - GENERAL ESTRELLITA TOMAS Final Result [facility] [id number] [address] [place] [address] documented in this encounter Visit Diagnoses Diagnosis Abscess- Primary Cellulitis and abscess of unspecified site Abscess Cellulitis and abscess of unspecified site documented in this encounter Care Teams Labor Gang Supervisor Relationship Specialty Start Date End Date Robin Abdi DO PCP - General 04/01/15 documented as of this encounter
--- OUTSIDE RECORDS SUMMARY | 2024-05-19 08:26 | XMS_ITS | Encounter Summary ---
Author Organization [facility] Address [address] [place] [address] Phone Care Team Providers Care Environmental Consultant Name Role Phone Robin Abdi DO Primary Care Provider [phone]- [phone] Reason for Visit * Reason Comments Skin Exam + a few spots Encounter Details Date Type Department Care Team (Late st Contact Info) Description 02/02/2022 9:30 AM CDT Office Visit [facility] Dermatology [facility] [address] [place] [phone] Minda Vann MD [address] [place] [address] History of basal cell carcinoma (BCC) (Primary Dx); Sebaceous gland hyperplasia; Angiolipoma of skin; Seborrheic keratosis; Neoplasm of unspecified behavior of bone, soft [...] on file Legal Sex Female 9:22 AM [employer] Gender Identity Not on file Sexual Orientation Not on file documented as of this encounter Progress Notes * Scarlet Amaro MD - 02/02/2022 9:30 AM CDT Images from the original note were not included. DERMATOLOGY OUTPATIENT NOTE CC: FBSE HPI: Marisol Ahmadi is a 46F PMH BCC R upper back s/p excision, multiple angiolipomas presents today for FBSE. Concerns today: - brown scaly spots on L anterior thigh, mid and lower back. She picked off a similar lesion recently. - skin tag in R axilla that gets caught on clothing and when she shaves MEDICATIONS/ALLEGIES/FAMILY HX/SOCIAL HX: Reviewed in chart ROS: [...] Genitalia Examination normal with the following exceptions: Multiple waxy hyperkeratotic stuck-on appearing soria papules on trunk, extremities Flesh-colored pedunculated papule, R axilla ~1cm subcutaneous nodules on R forearm and L anterior thigh ASSESSMENT AND PLAN: Neoplasm unspecified behavior - Dx: nevus r/o atypia - Location: R axilla - Biopsy done per procedure note below. - Wound care reviewed with patient. - Follow-up per path - Risks and benefits were discussed including, but not limited to, scarring, bleeding, infection, pain, and swelling. PROCEDURE: Shave Biopsy x 1 DESCRIPTION OF PROCEDURE: Informed consent was obtained, including discussion of risks including bleeding, scarring, infection, and recurrence/persistence. [place] Protocol Time-Out performed. The lesionals areas were prepped with hibiclens prior to infiltration with 1% lidocaine with epinephrine, 1:100,000 x 3ml. The lesions were biopsied with a Dermablade. Hemostasis was obtained with aluminum chloride and firm pressure. The specimen(s) were placed in formalin and sent for routine histopathological evaluation. There were no complications. The wounds were then dressed with sterile petrolatum and a sterile dressing. Wound care instructions were provided in verbal and written form including a 24-hour contact number in case of emergency. The patient will be notified. Sebaceous hyperplasia Seborrheic Keratoses - Benign. Patient reassured. Angiolipoma, multiple - Benign, reassured - s/p excision of 2 lesions on b/l forearms - Current lesions are not large enough to be bothersome today History of NMSC -NER -Reviewed ABCDEs and photoprotection including protective clothing and SPF 30+ - Recommended monthly self skin exams and yearly MD skin exams RTC: 1 year Scarlet Amaro MD Dermatology PGY-2 02/02/2022 I have seen and examined the patient. I agree with the findings and plan of care as documented in the resident's note, and I was present for the entire procedure. Minda Vann MD Cosigned by Minda Vann MD at 02/09/2022 9:20 AM CDT documented in this encounter Plan of Treatment Not on file documented as of this encounter Results * Surgical pathology (02/02/2022 12:00 AM CDT) Tissue (Skin, shave biopsy) 02/02/2022 02/02/2022 12:34 PM CDT [facility] - 02/04/2022 3:52 PM CDT EPIC results best viewed via link to PDF [facility] Dermatopathology [facility] [address] [place] [address]., ??[address] [place] [address] ? [email or web address] Note to Patients: ??This report may contain [...] ? SEX: ??F ? : ??1975 (Age: 46) ? Specimen Information: COLLECTED: ??02/02/2022 ? RECEIVED: ??02/02/2022 ? REPORTED: ??02/04/2022 ? Submitting Physician Information: Minda Vann M.D. [address] [place] [address], [address] [place] [id number], ? DERMATOPATHOLOGY REPORT RESULTS ?? DIAGNOSIS: SKIN, RIGHT AXILLA, SHAVE BIOPSY: ? SEBORRHEIC KERATOSIS, PEDUNCULATED ? rnc/lac By this signature, I attest that the above diagnosis is based upon my personal examination of the slides(and/or other material indicated in the diagnosis). Bekah Leavitt M.D. ?? Report Electronically Reviewed and Signed Out By ??Bekah Leavitt M.D. 02/04/2022 15:52:22 CLINICAL INFORMATION NEVUS. SPECIMEN DATA MICROSCOPIC DESCRIPTION: This pedunculated lesion consists of a fibrovascular core covered by papillated epithelial hyperplasia and hyperkeratosis. (L82.1) GROSS DESCRIPTION: Received in a formalin-containing bottle is a superficial fragment of soria and wrinkled skin measuring 0.7 by 0.5 by 0.8 cm. The surgical margin is inked blue. The specimen is sectioned into 2 pieces and submitted entirely in a single cassette. Due to shrinkage, measurements may be different than those at time of procedure. rnc/dxv Clerical Data A; 34034 The Characteristics of some immunohistochemical and immunofluorescence stains as well as in-situ hybridization tests were determined by the [facility] Dermatopathology Center in ongoing quality director and in compliance with regulations drawn from the Clinical Laboratory Improvement Act of 1988 (CLIA '88). These tests may rely on the use of analyte specific reagents that are subject to specific labeling requirements by the [place] FDA, and may only be performed in a facility that is certified by the [facility] as a high-complexity laboratory under CLIA '88. ??These tests are used for clinical purposes and are not investigational. ??For lab developed tests, the validation has been reviewed; the performance is considered acceptable for patient testing. us Minda Vann MD LAB PATHOLOGY ORDERABLES Final Result DERMATOPATHOLOGY CENTER [facility] [place] [address] documented in this encounter Visit Diagnoses Diagnosis Neoplasm of unspecified behavior of bone, soft tissue, and skin- Primary History of basal cell carcinoma (BCC)- Primary Sebaceous gland hyperplasia Angiolipoma of skin Seborrheic keratosis Neoplasm of unspecified behavior of bone, soft tissue, and skin documented in this encounter Care Teams Environmental Consultant Relationship Specialty Start Date End Date Robin Abdi DO PCP - General 04/01/15 documented as of this encounter
--- OUTSIDE RECORDS SUMMARY | 2024-05-19 08:26 | XMS_ITS | Encounter Summary ---
Author Organization [facility] Address [address] [place] [address] Phone Care Team Providers Care Open Claims Representative Name Role Phone Robin Abdi DO Primary Care Provider +1- [phone] Reason for Visit * Reason Comments Skin Exam Encounter Details Date Type Department Care Team (Late st Contact Info) Description 05/14/2019 9:30 AM FIREBRICK LAYER HELPER Office Visit [facility] Dermatology [address] [place] [address] Outpatient Health [address] [place] [phone] Minda Vann MD [address] [place], [place] [id number] Neoplasm of unspecified behavior of bone, soft tissue, and skin (Primary Dx) Social History Tobacco Use Types Packs/Day Years Used Date Smoking Tobacco: Never Alcohol Use Standard Drinks/Week Comments Yes 0 (1 standard drink = 0.6 oz pur e alcohol) Comments Unknown Sex and Gender Information Value Date Recorded Sex Assigned at Not on file Legal Sex Female 9:22 AM FIREBRICK LAYER HELPER Gender Identity Not on file Sexual Orientation Not on file documented as of this encounter Progress Notes * Minda Vann MD - 05/14/2019 9:30 AM CST Images from the original note were not included. DERMATOLOGY OUTPATIENT NOTE CC: lipoma HPI: Marisol Ahmadi is a 44 y.o. female with a PMH of BCC (left posterior shoulder, > 10 years ago) who presents today for evaluation of several bumps on her left arm. These spots are bothersome to her as they will bump against things and become tender and itchy. She had a similar spot on her right arm excised at her [facility] 08/2017 and requests repeat excision today. No major changes to the patient's health since her SU[facility]. Otherwise, no other painful, bleeding or pruritic areas. No other new, changing or otherwise suspicious lesions. Personal history of skin cancer: BCC Family history of melanoma: no History of tanning bed use: yes ~ 4 times Photoprotection: Daily MEDICATIONS/ALLEGIES/FAMILY HX/SOCIAL HX: Reviewed in chart ROS: [...] Genitalia Examination normal with the following exceptions: Skin colored, soft, well-circumscribed nodules at left elbow, left forearm ASSESSMENT AND PLAN: #. Skin Neoplasm of Unspecified Behavior Location: (A) Left forearm (B) Left elbow Differential: Lipoma Excision performed per procedure note, consent form obtained Wound care discussed with patient. Patient was provided with a wound care handout. All questions answered regarding suspected etiologies and possible treatment plans Follow-up per pathology results. #. History of non-melanoma skin cancer Not addressed at this visit Plan for TBSE August 2019 RTC: August 2019 for TBSE PROCEDURES: PROCEDURE: Simple excision PREOPERATIVE DIAGNOSIS: Lipoma POSTOPERATIVE DIAGNOSIS: Same LOCATION: Left forearm SIZE (including size of defect and margins): 1 cm ESTIMATED BLOOD LOSS: Less than 5 ml ANESTHESIA: 1% lidocaine with epinephrine, 1:100,000, x 5 ml CLOSURE METHOD: -Dermal - 4-0 Vicryl -Epidermal - 4-0 Nylon DRESSING: Sterile petrolatum, pressure bandage FINAL SUTURE LINE: 1 cm DESCRIPTION OF PROCEDURE: Informed consent was obtained, including discussion of risks including bleeding, scarring, infection, and recurrence/persistence and possible need for further treatment. [facility] [place] Protocol Time-Out performed prior to beginning the procedure. . The location above was identified and confirmed with patient. The area was prepped with hibiclens and local anesthesia was infiltrated. Thereafter, the skin was prepped and draped with sterile towels. Excision was carried out through the full thickness of the dermis into the subcutaneous fat using a #15 blade. The specimen was placed in formalin and sent for routine histopathological evaluation. The cavity from which the spe cimen was removed was undermined circumferentially for approximately 2 cm. space was closed in a layered fashion using sutures noted above. The epidermis was then approximated with suture noted above. There were no complications. The procedure was well tolerated. The wound was dressed with sterile petrolatum, guaze and surgical tape. Wound care instructions were provided in verbal and written form including a 24-hour contact number in case of emergency. The patient will have suture removed in 14 days. PROCEDURE: Simple excision PREOPERATIVE DIAGNOSIS: Lipoma POSTOPERATIVE DIAGNOSIS: Same LOCATION: Left elbow SIZE (including size of defect and margins): 1 cm ESTIMATED BLOOD LOSS: Less than 5 ml ANESTHESIA: 1% lidocaine with epinephrine, 1:100,000, x 5 ml CLOSURE METHOD: -Dermal - 4-0 Vicryl -Epidermal - 4-0 Nylon DRESSING: Sterile petrolatum, pressure bandage FINAL SUTURE LINE: 1 cm DESCRIPTION OF PROCEDURE: Informed consent was obtained, including discussion of risks including bleeding, scarring, infection, and recurrence/persistence and possible need for further treatment. Center [place]wich Protocol Time-Out performed prior to beginning the procedure. . The location above was identified and confirmed with patient. The area was prepped with hibiclens and local anesthesia was infiltrated. Thereafter, the skin was prepped and draped with sterile towels. Excision was carried out through the full thickness of the dermis into the subcutaneous fat using a #15 blade. The specimen was placed in formalin and sent for routine histopathological evaluation. The cavity from which the spe cimen was removed was undermined circumferentially for approximately 2 cm. space was closed in a layered fashion using sutures noted above. The epidermis was then approximated with suture noted above. There were no complications. The procedure was well tolerated. The wound was dressed with sterile petrolatum, guaze and surgical tape. Wound care instructions were provided in verbal and written form including a 24-hour contact number in case of emergency. The patient will have suture removed in 14 days. Marah Feliciano, PGY-2 Dermatology, [facility] I have seen and examined the patient. I agree with the findings and plan of care as documented in the resident's note, and I was present for the entire procedure. Minda Vann MD BRICK LAYER HELPER documented in this encounter Miscellaneous Notes * Addendum Note - Shivam Yeung - 05/14/2019 9:30 AM CSTAddended by: SHIVAM YEUNG on: 02/02/2022 12:33 PM Modules accepted: Orders documented in this encounter Plan of Treatment Not on file documented as of this encounter Procedures Procedure Name Priority Date/Time Associated Diagnosis Comments SURGICAL PATHOLOGY Routine 02/02/2022 12 :00 AM CDT Neoplasm of unspecified behavior of bone, soft tissue, and skin SURGICAL PATHOLOGY Routine 05/14/2019 12 :00 AM FIREBRICK LAYER HELPER Neoplasm of unspecified behavior of bone, soft tissue, and skin documented in this encounter Results * Surgical pathology (02/02/2022 12:00 AM CDT) Tissue (Skin, shave biopsy) 02/02/2022 02/02/2022 12:34 PM CDT [facility] - 02/04/2022 3:52 PM CDT EPIC results best viewed via link to PDF [facility] [address] [place] [address] Ave[address] ??[address] [place] [address] ? [email or web address] Note to Patients: ??This report may [...] ? Submitting Physician Information: Minda Vann M.D. [address] [place] [address], [address] ??[address], ? DERMATOPATHOLOGY REPORT RESULTS ?? DIAGNOSIS: SKIN, [...] time of procedure. rnc/dxv Clerical Data A; 80064 The Characteristics of some immunohistochemical and immunofluorescence stains as well as in-situ hybridization tests were determined by the [facility] in ongoing quality improvement consultant and in compliance with regulations drawn from the Clinical Laboratory Improvement Act of 1988 (CLIA '88). These tests may rely on the use of analyte specific reagents that are subject to specific labeling requirements by the US FDA, and may only be performed in a facility that is certified by the [facility] as a high-complexity laboratory under CLIA '88. ??These tests are used for clinical purposes and are not investigational. ??For lab developed tests, the validation has been reviewed; the performance is considered acceptable for patient testing. us Minda Vann MD LAB PATHOLOGY ORDERABLES Final Result DERMATOPATHOLOGY CENTER [address] [place] [address] * Surgical pathology (05/14/2019 12:00 AM FIREBRICK LAYER HELPER) Tissue 05/14/2019 05/14/2019 12: 28 PM FIREBRICK LAYER HELPER Narrative DERMATOPATHOLOGY CENTER - 05/16/2019 1:42 PM FIREBRICK LAYER HELPER EPIC results best viewed via link to PDF [facility] [address] ??[address], [place] [address] ?[email or web address] FINAL REPORT Patient Information: PATIENT NAME: ??MARISOL AHMADI ? SEX: ??F ? : ??1975 (Age: 44) ? Specimen Information: COLLECTED: ??05/14/2019 ? RECEIVED: ??05/14/2019 ? REPORTED: ??05/16/2019 ? Submitting Physician Information: Minda Vann M.D. [address] [facility] ([facility] [address] [place], [place] ??[address], ? DERMATOPATHOLOGY REPORT RESULTS ?? DIAGNOSIS: A. ??SKIN, LEFT FOREARM, EXCISION: ? ANGIOLIPOMA B. ??SKIN, LEFT ELBOW, EXCISION: ? ANGIOLIPOMA klp/lac By this signature, I attest that the above diagnosis is based upon my personal examination of the slides(and/or other material indicated in the diagnosis). Bekah Leavitt M.D. ?? Report Electronically Reviewed and Signed Out By ??Bekah Leavitt M.D. 05/16/2019 13:42:00 CLINICAL INFORMATION A-B. ??SUBCUTANEOUS NODULE PRESENT FOR MULTIPLE MONTHS; DDX LIPOMA. SPECIMEN DATA MICROSCOPIC DESCRIPTION: A-B. ??There is a well-circumscribed neoplasm composed of mature adipose tissue in which there are numerous small blood vessels, some of which contain fibrin thrombi. (D17.9) GROSS DESCRIPTION: A. ??Received in a formalin-containing bottle is an irregularly shaped portion of yellow, lobulated, and glistening adipose tissue measuring 2.8 by 1.5 by 0.7 cm. The specimen is sectioned into 4 pieces revealing yellow and glistening cut surfaces. The specimen is entirely submitted in 2 cassettes. ??Due to the nature of the specimen, extended processing is required. B. ??Received in a formalin-containing bottle are multiple irregularly shaped portions of yellow, lobulated, and glistening adipose tissue measuring 3.0 by 1.5 by 1.3 cm in aggregate. The specimen is seriallysectioned,revealing yellow and glisteningcut surfaces. The specimen is entirely submitted in 4 cassettes. ??Due to the nature of the specimen, extended processing is required. dm/zek The Characteristics of some immunohistochemical and immunofluorescence stains as well as in-situ hybridization tests were determined by the [facility] in ongoing quality improvement consultant and in compliance with regulations drawn from the Clinical Laboratory Improvement Act of 1988 (CLIA '88). These tests may rely on the use of analyte specific reagents that are subject to specific labeling requirements by the US FDA, and may only be performed in a facility that is certified by the [facility] as a high-complexity laboratory under CLIA '88. ??These tests are used for clinical purposes and are not investigational. ??For lab developed tests, the validation has been reviewed; the performance is considered acceptable for patient testing. Minda Vann MD LAB PATHOLOGY ORDERABLES Final Result DERMATOPATHOLOGY CENTER [address] [place] [address] documented in this encounter Visit Diagnoses Diagnosis Neoplasm of unspecified behavior of bone, soft tissue, and skin- Primary documented in this encounter Care Teams Open Claims Representative Relationship Specialty Start Date End Date Robin Abdi DO PCP - General 04/01/15 documented as of this encounter
--- OUTSIDE RECORDS SUMMARY | 2024-05-19 08:26 | XMS_ITS | Encounter Summary ---
Author Organization [facility] Address [address] [place] [address] Phone Care Team Providers Care Mate Ship Name Role Phone Robin Abdi DO Primary Care Provider [phone]- [phone] Encounter Details Date Type Department Care Team (Late st Contact Info) Description 09/02/2017 Orders Only [facility] Dermatology [address] [facility] Advanced Medicine 5th [place] [address] [place] [phone] Minda Vann MD [address] [facility] [address] [place], [place] [id number] Social History Tobacco Use Types Packs/Day Years Used Date Smoking Tobacco: Never Alcohol Use Standard Drinks/Week Comments Yes 0 (1 standard drink = 0.6 oz pur e alcohol) Comments Unknown Sex and Gender Information Value Date Recorded Sex Assigned at Not on file Legal Sex Female 9:22 AM BARREL RAISER HELPER Gender Identity Not on file Sexual Orientation Not on file documented as of this encounter Plan of Treatment Not on file documented as of this encounter Procedures Procedure Name Priority Date/Time Associated Diagnosis Comments SURGICAL PATHOLOGY Routine 09/02/2017 12 :00 AM CDT documented in this encounter Results * Surgical pathology (09/02/2017 12:00 AM CDT) 09/02/2017 09/05/2017 9:2 5 AM CDT Narrative 09/07/2017 2:03 PM CDT FINAL REPORT PATIENT INFORMATION PHYSICIAN INFORMATION SPECIMEN INFORMATION MARISOL AHMADI M.D. SEX: F [id number] [facility] ([facility] [address]) COLLECTED: 09/05/2017 : 1975 (Age: 42) [address] RECEIVED: 09/02/2017 [place], [place] ??[address] REPORTED 09/07/2017 ?? [phone] ? DERMATOPATHOLOGY REPORT RESULTS ?? DIAGNOSIS: SKIN, RIGHT BILATERAL ARM, PUNCH BIOPSY: ? ANGIOLIPOMA djd/lac Bekah Leavitt M.D. ??Electronic Signature: 09/07/2017 14:03:55 CLINICAL INFORMATION LIPOMA; D49.2. SPECIMEN DATA MICROSCOPIC DESCRIPTION: There is a well-circumscribed neoplasm composed of mature adipose tissue in which there are numerous small blood vessels, some of which contain fibrin thrombi. (D17.9) GROSS DESCRIPTION: Received in a formalin-containing bottle is an irregularly shaped portion of yellow, glistening, homogenous with no gross masses or lesion identified adipose tissue measuring 1.5 by 1.5 by 0.4 cm. Please note, epidermal tissue is not grossly identified. The specimen is sectioned into 4 pieces and is entirely submitted in a single cassette tjb/bms The characteristics of some immunohistochemical and immunofluorescence stains as well as in-situ hybridization tests were determined by the [facility] in ongoing quality cloth tester and in compliance with regulations drawn from the Clinical Laboratory Improvement Act of 1988 (CLIA '88). These tests may rely on the use of analyte specific reagents that are subject to specific labeling requirements by the US FDA, and may only be performed in a facility that is certified by the [facility] as a high-complexity laboratory under CLIA '88. These tests are used for clinical purposes and are not investigational.For lab developed tests and KELLY, the validation has been reviewed; the performance is considered acceptable for patient testing. KELLY has not been approved by the US FDA; lipemic/hemolyzed samples can affect the diagnosis. Minda Vann MD LAB PATHOLOGY ORDERABLES Final Result documented in this encounter Visit Diagnoses Not on filedocumented in this encounter Care Teams Mate Ship Relationship Specialty Start Date End Date Robin Abdi DO PCP - General 04/01/15 documented as of this encounter
--- OUTSIDE RECORDS SUMMARY | 2024-05-19 08:26 | XMS_ITS | Encounter Summary ---
Author Organization [facility] Address [address] [place] [address] Phone Care Team Providers Care Professor Of German Name Role Phone Robin Abdi DO Primary Care Provider +1- [phone] Reason for Visit * Reason Onset Date Comments Test Results 05/18/2019 biopsy results Encounter Details Date Type Department Care Team (Late st Contact Info) Description 05/18/2019 Telephone [facility] Dermatology [address] [facility] Outpatient Health [address] [place] [address] Minda Vann MD [address] [id number] Test Results (biopsy results) Social History Tobacco Use Types Packs/Day Years Used Date Smoking Tobacco: Never Alcohol Use Standard Drinks/Week Comments Yes 0 (1 standard drink = 0.6 oz pur e alcohol) Comments Unknown Sex and Gender Information Value Date Recorded Sex Assigned at Not on file Legal Sex Female 9:22 AM SYSTEMS APPLICATIONS PROGRAMMING LEAD Gender Identity Not on file Sexual Orientation Not on file documented as of this encounter Miscellaneous Notes * Telephone Encounter - Yumiko Garcia CMA - 05/18/2019 1:20 PM SYSTEMS APPLICATIONS PROGRAMMING LEAD LMOR biosy results are angiolipoma as expected, (fat pack). EMS APPLICATIONS PROGRAMMING LEAD * Telephone Encounter - Yumiko Garcia CMA - 05/18/2019 1:20 PM SYSTEMS APPLICATIONS PROGRAMMING LEAD ----- Message from Minda Vann MD sent at 05/16/2019 5:42 PM SYSTEMS APPLICATIONS PROGRAMMING LEAD ----- Angiolipoma as expected. EMS APPLICATIONS PROGRAMMING LEAD documented in this encounter Plan of Treatment Not on file documented as of this encounter Visit Diagnoses Not on filedocumented in this encounter Care Teams Professor Of German Relationship Specialty Start Date End Date Robin Abdi DO PCP - General 04/01/15 documented as of this encounter
== END 2024-05-14 10:15 | disposition home or self-care (01) ==
PROVIDERS: Anesthesiology; PCP Clinical Nurse Specialist; Visit Provider Surgery
PROC: 0DJD8ZZ Inspection of Lower Intestinal Tract, Via Natural or Artificial Opening Endoscopic (ICD-10-PCS; CPT 45378; principal; 2024-05-14 09:30)
DX: Z12.11 Encounter for screening for malignant neoplasm of colon (principal); K57.30 Diverticulosis of large intestine without perforation or abscess without bleeding; D64.9 Anemia, unspecified; Z98.890 Other specified postprocedural states; Z85.828 Personal history of other malignant neoplasm of skin; Z80.3 Family history of malignant neoplasm of breast; Z82.49 Family history of ischemic heart disease and other diseases of the circulatory system
CPT/HCPCS: 45378; J2704; J7120

== ENCOUNTER 2024-07-17 12:50 | Outpatient (CLI) | payer OTHER, SELFPAY ==
--- NOTE | ~2024-07-17 | MMUS_ITS ---
EXAMINATION: MM diagnostic ene RT w prince, US breast RT complete HISTORY: Developing right breast masses on recent screening mammogram TECHNIQUE: Additional 3-D tomosynthesis images of the right breast were performed and synthetic 2-D i mages were generated. CAD analysis was submitted and interpreted. High resolution complete right ava st ultrasound was performed. COMPARISON: Comparison to multiple prior studies sequentially, with oldest reviewed study dated 12/12. BREAST PARENCHYMAL COMPOSITION: Dense: The breasts are extremely dense, which lowers the sensitivity of mammography. FINDINGS: MAMMOGRAPHIC FINDINGS: There are multiple masses in the right breast is many of which are obscured by dense fibroglandular t issue. Largest mass is located in the upper central right breast, middle third. ULTRASOUND: Complete US of all 4 quadrants of the right breast/s and retroareolar region was reviewed. There are multiple right breast cysts corresponding to the masses seen on mammography. The largest cyst is at 1 0:00, 2 cm from the nipple measuring 3.2 cm corresponding to the mammographic finding. No suspicious sonographic abnormalities to suggest malignancy. IMPRESSION: 1. No evidence for malignancy in the right breast. Benign findings. 2. Routine yearly screening mammogram and regular clinical breast examination are recommended. BI-RADS Category 2: Benign finding(s). Reviewed, dictated and finalized at location B. ORATE STRATEGY ASSOCIATE IMPRESSION: 1. No evidence for malignancy in the right breast. Benign findings. 2. Routine yearly screening mammogram and regular clinical breast examination a re recommended. BI-RADS Category 2: Benign finding(s).
--- OUTSIDE RECORDS SUMMARY | 2024-07-17 12:57 | XMS_ITS | Referral Summary ---
Author Organization [facility] Address [address] [place] [address] Care Team Providers Care Parking Manager Name Role Phone Robin Abdi DO Primary Care Provider +1- [phone] Encounters Date Type Department Care Team Description 07/03/2024 11:30 AM ASSOCIATE AGENT INSURANCE SALES Office Visit [facility] Dermatology [address] [place] [address] [address] [place] [phone] Kleber tang, Lexy Hernandez MD Sebaceous gland hyperplasia (Primary Dx) from Last 3 Months Allergies No known active allergies Medications predniSONE (DELTASONE) 10 mg tabletIndication s:Poison roxana dermatitis Take 4 tablets days 1-3, take 3 tablets days 4-6, take 2 tablets days 7-9, take 1 tablet days 10-14 32 tablet 4 Active tretinoin (RETIN-A) 0.025 % creamIndications :Sebaceous gland hyperplasia Apply topically nightly Apply pea size amount nightly to face 45 g 3 5 07/03/19 26 Active Active Problems Problem Noted Date Diagnosed [...] on file Legal Sex Female 9:22 AM ASSOCIATE AGENT INSURANCE SALES Gender Identity Not on file Sexual Orientation Not on file Last Filed Vital Signs Vital Sign Reading Time Taken Comments Blood Pressure 128/80 12/31/2023 8:39 AM CDT Pulse 62 12/31/2023 8:39 AM CDT Temperature 36.2 C (97.2 F) 12/31/2023 8:39 AM CDT Respiratory Rate 16 12/31/2023 8:39 AM CDT Oxygen Saturation 100% 12/31/2023 8:39 AM CDT Inhaled Oxygen Concentration - - Weight 81.7 kg (180 lb 1.6 oz) 12/31/2023 8:39 A M CDT Height 180.3 cm (5' 11 ) 12/31/2023 8:39 AM CDT Body Mass Index 25.12 12/31/2023 8:39 AM CDT Plan of Treatment Not on file Insurance [place] [id number] [employer] [facility] [employer] OPEN ACCESS [facility] [id number] Care Teams Parking Manager Relationship Specialty Start Date End Date Robin Abdi DO PCP - General 04/01/15
--- OUTSIDE RECORDS SUMMARY | 2024-07-17 12:57 | XMS_ITS | Clinical Summary ---
Author Organization [facility] Address [address] [place] [phone] Care Team Providers Care Snow Remover Name Role Phone Robin Abdi DO Primary Care Provider +1- [phone] Allergies No known active allergies Medications predniSONE [...] Department Care Team Description 07/03/2024 11:30 AM CONTACT CENTER ENGINEER Office Visit [facility] Dermatology [address] [place] [address] [address] [place] [phone] Lexy Diane MD Sebaceous gland hyperplasia (Primary Dx) from Last 3 Months Surgical History Surgery [...] on file Legal Sex Female 9:22 AM CONTACT CENTER ENGINEER Gender Identity Not on file Sexual Orientation [...] patient's age to complete this topic Insurance [facility] [employer] OPEN ACCESS [facility] [id number] [facility] [id number] Care Teams Snow Remover Relationship Specialty Start Date End Date Robin Abdi DO PCP - General 04/01/15
== END 2024-07-17 12:51 | disposition home or self-care (01) ==
LOC: ANHIMG 12:51
PROVIDERS: PCP Clinical Nurse Specialist; Visit Provider Obstetrics & Gynecology
DX: N63.10 Unspecified lump in the right breast, unspecified quadrant (principal); R92.8 Other abnormal and inconclusive findings on diagnostic imaging of breast
CPT/HCPCS: 76641; 77061; 77065; G0279